=== PATIENT | female | born 1955 | race Two or more races ===

== ENCOUNTER 2021-03-28 10:08 | Inpatient (IN) | payer MEDICARE, OTHER ==
[~2021-03-28] VITALS: Ht 157.5 cm; Wt 88.0 kg
[2021-03-28 10:51] LABS: Basophils # (auto) 0.1 10 ^3/uL (0-0.2); Basophils % (auto) 0.3 % (0.0-2.0); Eosinophils # (auto) 0 10 ^3/uL (0-0.8); Eosinophils % (auto) 0.2 % (0.0-7.0); Hematocrit 42.5 % (36.0-46.0); Hemoglobin 11.8 g/dL (12.2-16.2); Lymphocytes % (auto) 15.6 % (10.0-50.0); Mean Corpuscular Hemoglobin 27.1 pg (28.0-32.0); Mean Corpuscular Hgb Conc. 27.9 g/dL (32.0-36.0); Monocytes # (auto) 1.7 10 ^3/uL (0-1.3); Monocytes % (auto) 9.2 % (0.0-12.0); Neutrophils # (auto) 14.1 10 ^3/uL (1.6-8.6); Neutrophils % (auto) 74.7 % (37.0-80.0); Nucleated Red Blood Cells % 0.1 %; Red Blood Cells 4.38 10^6/uL (4.0-5.20); Red Cell Distribution Width 15.8 % (11.8-14.3); White Blood Cell 18.9 10^3/uL (4.4-10.8)
[2021-03-28 11:05] LABS: Calcium 8.7 mg/dL (8.5-10.1); Magnesium 3.7 mg/dL (1.6-2.6)
[2021-03-28 11:14] LABS: BUN/Creatinine Ratio 19.2; Bilirubin, Total 0.5 mg/dL (0.2-1.0); Total Protein 7.1 g/dL (6.4-8.2)
[2021-03-28 11:20] LABS: Potassium 6.2 mmol/L (3.5-5.1)
[2021-03-28] MEDS ORDERED: DEXTROSE (50%) 50ML SYRG IV PRN (11:30)
[2021-03-28] MEDS ORDERED: INSULIN LANTUS (GLARGINE) 1 /0.01ml (100units/ml) SC ONE (11:30)
[2021-03-28] MEDS ORDERED: InsuLIN REG 1unit/0.01ml Soln (100units/ml) IV ONE (11:30)
[2021-03-28] MEDS ORDERED: InsuLIN R (HUMAN) 100 UNITS in SODIUM CHL 0.9% 99 ML IV SCH ×2 (11:30→19:15)
[2021-03-28] MEDS: ACCU-CHEK COMFORT CURVE STRIP VI SCH ×8 (12:00→23:45)
[2021-03-28] MEDS ORDERED: ETOMIDATE (2MG/ML) 20ML VIAL IV ONE ×2 (12:20→12:30)
[2021-03-28] MEDS ORDERED: SUCCINYLCHOLINE CHLORIDE 20 MG/ML 10ML VIAL IV ONE ×2 (12:20→12:30)
[2021-03-28] MEDS ORDERED: MIDAZOLAM DRIP 50 mg/50mL 50 ML IV ONE ×3 (12:21→19:16)
[2021-03-28] MEDS ORDERED: SODIUM BICARBONATE 8.4 % INJ 50ML VIAL IV ONE ×2 (12:30)
[2021-03-28] MEDS ORDERED: NOREPINEPHRINE 8 MG/250ML KIT 250 ML IV ONE (13:20)
[2021-03-28] MEDS: NOREPINEPHRINE 8 MG/250ML KIT 250 ML IV SCH (13:30)
[2021-03-28 14:02] LABS: Urine Bacteria FEW /hpf (None Seen); Urine Blood TRACE /uL (Negative); Urine Hyaline Cast FEW /lpf (0 - 2); Urine Specific Gravity 1.018 (1.001-1.035); Urine WBC 3 /hpf (0 - 5)
[2021-03-28] MEDS ORDERED: CEFEPIME 1 GM in SODIUM CHL 0.9% 50 ML IV ONE (14:30)
[2021-03-28] MEDS ORDERED: D5W/SOD CHLO 0.9% 1,000 ML IV PRN (14:30)
[2021-03-28] MEDS ORDERED: SODIUM CHLORIDE 0.9% 3,000 ML IV ONE (14:30)
[2021-03-28] MEDS ORDERED: MORPHINE SULFATE INJECTION 2 MG/ML SYRG IV PRN ×2 (14:30→16:15)
[2021-03-28] MEDS ORDERED: SOD CHL 0.9%/ KCL 20MEQ 1,000 ML IV PRN (14:30)
[2021-03-28] MEDS ORDERED: NITROGLYCERIN 0.4 MG SL TAB SL PRN ×2 (14:30→16:15)
[2021-03-28] MEDS ORDERED: LACTATED RINGER'S 2,000 ML IV ONE (14:30)
[2021-03-28] MEDS ORDERED: ENOXAPARIN SOD 40 MG/0.4 ML SYRINGE SC ONE (14:30)
[2021-03-28] MEDS ORDERED: SODIUM CHLORIDE 0.9% 1,000 ML IV ONE (15:30)
[2021-03-28] MEDS ORDERED: SODIUM BICARBONATE 50ML VIAL 50 ML in SOD CHL 0.45% 1,000 ML IV ONE (15:45)
[2021-03-28 16:00] VITALS: BP 105/28
[2021-03-28] MEDS ORDERED: PANTOPRAZOLE 40 MG/10 ML VIAL INJ IV ONE (16:15)
[2021-03-28] MEDS ORDERED: ACETAMINOPHEN 325 MG TAB PO PRN (16:15)
[2021-03-28] MEDS ORDERED: LORazepam 0.5 MG TAB PO PRN (16:15)
[2021-03-28] MEDS ORDERED: ALUM & MAG HYDROX-SIMETH LIQ(MAALOX) 30 ML PO PRN (16:15)
[2021-03-28] MEDS ORDERED: METOCLOPRAMIDE HCL 5MG/ml INJ 2ml VIAL IV PRN (16:15)
[2021-03-28] MEDS ORDERED: HYDROcodone-ACET 5/325MG TAB PO PRN (16:15)
[2021-03-28] MEDS ORDERED: BUMETANIDE 2.5mg/10ml (0.25 mg/ml) INJ IV ONE (16:15)
[2021-03-28 18:52] VITALS: BP 111/45
[2021-03-28] MEDS: MIDAZOLAM DRIP 50 mg/50mL 50 ML IV SCH (19:53)
[2021-03-28] MEDS: SODIUM CHLORIDE 0.9% 1,000 ML IV SCH (20:14)
[2021-03-28 22:02] VITALS: BP 109/35
[2021-03-28] MEDS: ATORVASTATIN 20 MG TAB PO SCH (22:26)
[2021-03-29] MEDS: ACCU-CHEK COMFORT CURVE STRIP VI SCH ×9 (01:46→18:40)
[2021-03-29] MEDS: SODIUM CHLORIDE 0.9% 1,000 ML IV SCH ×9 (01:56→18:54)
[2021-03-29 02:09] VITALS: BP 123/39
[2021-03-29] MEDS: MIDAZOLAM DRIP 50 mg/50mL 50 ML IV SCH ×3 (02:58→23:30)
[2021-03-29] MEDS: NOREPINEPHRINE 8 MG/250ML KIT 250 ML IV SCH (03:12)
[2021-03-29 03:14] LABS: LDL Cholesterol 82 mg/dL (< 100); Triglycerides 104 mg/dL (< 150)
[2021-03-29 03:55] LABS: Cholesterol 152 mg/dL (< 200)
[2021-03-29 03:58] LABS: HDL Cholesterol 47 mg/dL (40-59)
[2021-03-29] MEDS: BUMETANIDE 2.5mg/10ml (0.25 mg/ml) INJ IV SCH ×2 (06:19→18:40)
[2021-03-29] MEDS: HEPARIN SODIUM (PORCINE) 5000 UNITS/ML 1ML VIAL SC SCH ×3 (06:29→22:08)
[2021-03-29 06:30] VITALS: BP 117/47
[2021-03-29 08:18] LABS: Basophils # (auto) 0 10 ^3/uL (0-0.2); Basophils % (auto) 0.2 % (0.0-2.0); Eosinophils # (auto) 0 10 ^3/uL (0-0.8); Hematocrit 32.6 % (36.0-46.0); Hemoglobin 11.2 g/dL (12.2-16.2); Lymphocytes # (auto) 2.6 10 ^3/uL (0.4-5.4); Lymphocytes % (auto) 14.8 % (10.0-50.0); Mean Corpuscular Hemoglobin 27.8 pg (28.0-32.0); Mean Corpuscular Hgb Conc. 34.3 g/dL (32.0-36.0); Monocytes # (auto) 2.8 10 ^3/uL (0-1.3); Monocytes % (auto) 15.9 % (0.0-12.0); Neutrophils # (auto) 12.2 10 ^3/uL (1.6-8.6); Neutrophils % (auto) 69.1 % (37.0-80.0); Red Blood Cells 4.02 10^6/uL (4.0-5.20); Red Cell Distribution Width 14.1 % (11.8-14.3); White Blood Cell 17.7 10^3/uL (4.4-10.8)
[2021-03-29 08:49] LABS: Potassium 3.5 mmol/L (3.5-5.1)
[2021-03-29 09:01] LABS: Albumin 2.4 g/dL (3.4-5.0); BUN/Creatinine Ratio 24.8; Bilirubin, Total 0.3 mg/dL (0.2-1.0); Calcium 7.3 mg/dL (8.5-10.1); Magnesium 2.2 mg/dL (1.6-2.6); Phosphorus 2.8 mg/dL (2.5-4.90); Uric Acid 7.6 mg/dL (2.6-6.0)
[2021-03-29] MEDS ORDERED: ENOXAPARIN SOD 30 MG/0.3 ML SYRINGE SC SCH (10:00)
[2021-03-29] MEDS ORDERED: INSULIN LANTUS (GLARGINE) 1 /0.01ml (100units/ml) SC SCH (10:00)
[2021-03-29 10:15] VITALS: BP 140/36
[2021-03-29] MEDS: ASPirin 81 mg TAB PO SCH (11:07)
[2021-03-29] MEDS: PANTOPRAZOLE 40 MG/10 ML VIAL INJ IV SCH (11:07)
[2021-03-29] MEDS ORDERED: DEXTROSE (50%) 50ML SYRG IV PRN (12:15)
[2021-03-29] MEDS ORDERED: INSULIN LANTUS (GLARGINE) 1 /0.01ml (100units/ml) SC ONE (12:15)
[2021-03-29] MEDS ORDERED: D5W/SOD CHL 0.45%/KCL 20MEQ 1,000 ML IV SCH (12:45)
[2021-03-29 14:05] VITALS: BP 135/55
[2021-03-29] MEDS ORDERED: CEFEPIME 1 GM in SODIUM CHL 0.9% 50 ML IV SCH (15:00)
[2021-03-29 18:31] VITALS: BP 125/49
[2021-03-29] MEDS: InsuLIN REG 1unit/0.01ml Soln (100units/ml) SC SCH (18:49)
[2021-03-29 21:38] VITALS: BP 130/51
[2021-03-29] MEDS: INSULIN LANTUS (GLARGINE) 1 /0.01ml (100units/ml) SC SCH (22:00)
[2021-03-29] MEDS: CEFEPIME 1 GM in SODIUM CHL 0.9% 50 ML IV SCH (22:08)
[2021-03-29] MEDS: ATORVASTATIN 20 MG TAB PO SCH (22:08)
[2021-03-30] VITALS (11 sets, daily range): BP systolic 109–150; BP diastolic 50–77
[2021-03-30] MEDS: SODIUM CHLORIDE 0.9% 1,000 ML IV SCH (00:51)
[2021-03-30] MEDS: InsuLIN REG 1unit/0.01ml Soln (100units/ml) SC SCH ×4 (01:10→18:26)
[2021-03-30] MEDS: ACCU-CHEK COMFORT CURVE STRIP VI SCH ×4 (01:11→18:15)
[2021-03-30 07:52] LABS: Basophils # (auto) 0.1 10 ^3/uL (0-0.2); Basophils % (auto) 0.7 % (0.0-2.0); Eosinophils # (auto) 0 10 ^3/uL (0-0.8); Eosinophils % (auto) 0.1 % (0.0-7.0); Hematocrit 33.2 % (36.0-46.0); Hemoglobin 11.2 g/dL (12.2-16.2); Lymphocytes # (auto) 2.4 10 ^3/uL (0.4-5.4); Mean Corpuscular Hemoglobin 27.8 pg (28.0-32.0); Mean Corpuscular Hgb Conc. 33.8 g/dL (32.0-36.0); Mean Corpuscular Volume 82.2 fL (80.0-100.0); Neutrophils # (auto) 6.5 10 ^3/uL (1.6-8.6); Neutrophils % (auto) 65.2 % (37.0-80.0); Red Blood Cells 4.04 10^6/uL (4.0-5.20); Red Cell Distribution Width 14.4 % (11.8-14.3); White Blood Cell 9.9 10^3/uL (4.4-10.8)
[2021-03-30 07:56] LABS: Albumin 2.2 g/dL (3.4-5.0); Calcium 7.9 mg/dL (8.5-10.1); Potassium 3.1 mmol/L (3.5-5.1)
[2021-03-30 07:58] LABS: BUN/Creatinine Ratio 17.8
[2021-03-30 08:00] LABS: Bilirubin, Total 0.4 mg/dL (0.2-1.0); Total Protein 5.4 g/dL (6.4-8.2)
[2021-03-30] MEDS: PANTOPRAZOLE 40 MG/10 ML VIAL INJ IV SCH (08:58)
[2021-03-30] MEDS: CEFEPIME 1 GM in SODIUM CHL 0.9% 50 ML IV SCH ×2 (08:58→23:00)
[2021-03-30] MEDS: ASPirin 81 mg TAB PO SCH (08:58)
[2021-03-30] MEDS: BUMETANIDE 2.5mg/10ml (0.25 mg/ml) INJ IV SCH ×2 (09:04→18:25)
[2021-03-30] MEDS: HEPARIN SODIUM (PORCINE) 5000 UNITS/ML 1ML VIAL SC SCH ×3 (09:05→21:58)
[2021-03-30] MEDS: NOREPINEPHRINE 8 MG/250ML KIT 250 ML IV SCH (13:30)
[2021-03-30] MEDS: POTASSIUM CHL 10MEQ/50ML 50 ML IV SCH ×4 (13:40→16:56)
[2021-03-30] MEDS: MIDAZOLAM DRIP 50 mg/50mL 50 ML IV SCH (20:33)
[2021-03-30] MEDS: ATORVASTATIN 20 MG TAB PO SCH (21:58)
[2021-03-30] MEDS: INSULIN LANTUS (GLARGINE) 1 /0.01ml (100units/ml) SC SCH (22:00)
[2021-03-31] VITALS (57 sets, daily range): BP systolic 98–170; BP diastolic 45–76
[2021-03-31] MEDS: ACCU-CHEK COMFORT CURVE STRIP VI SCH ×4 (00:03→18:10)
[2021-03-31] MEDS: InsuLIN REG 1unit/0.01ml Soln (100units/ml) SC SCH ×4 (00:08→18:10)
[2021-03-31 05:00] LABS: Basophils # (auto) 0.1 10 ^3/uL (0-0.2); Basophils % (auto) 0.6 % (0.0-2.0); Eosinophils # (auto) 0 10 ^3/uL (0-0.8); Eosinophils % (auto) 0.2 % (0.0-7.0); Hematocrit 33.5 % (36.0-46.0); Hemoglobin 11.2 g/dL (12.2-16.2); Lymphocytes % (auto) 25.2 % (10.0-50.0); Mean Corpuscular Hemoglobin 27.6 pg (28.0-32.0); Mean Corpuscular Hgb Conc. 33.5 g/dL (32.0-36.0); Mean Corpuscular Volume 82.5 fL (80.0-100.0); Monocytes # (auto) 0.6 10 ^3/uL (0-1.3); Monocytes % (auto) 7.6 % (0.0-12.0); Neutrophils # (auto) 5.4 10 ^3/uL (1.6-8.6); Neutrophils % (auto) 66.4 % (37.0-80.0); Nucleated Red Blood Cells % 0.2 %; Red Blood Cells 4.06 10^6/uL (4.0-5.20); Red Cell Distribution Width 14.9 % (11.8-14.3); White Blood Cell 8.1 10^3/uL (4.4-10.8)
[2021-03-31 05:21] LABS: Calcium 8.2 mg/dL (8.5-10.1)
[2021-03-31 05:23] LABS: BUN/Creatinine Ratio 12.5
[2021-03-31 05:30] LABS: Bilirubin, Total 0.4 mg/dL (0.2-1.0); Total Protein 5.8 g/dL (6.4-8.2)
[2021-03-31] MEDS: BUMETANIDE 2.5mg/10ml (0.25 mg/ml) INJ IV SCH ×2 (05:38→18:11)
[2021-03-31] MEDS: HEPARIN SODIUM (PORCINE) 5000 UNITS/ML 1ML VIAL SC SCH ×3 (05:43→22:00)
[2021-03-31] MEDS: MIDAZOLAM DRIP 50 mg/50mL 50 ML IV SCH (06:46)
[2021-03-31] MEDS ORDERED: POTASSIUM CHL 10MEQ/50ML 50 ML IV SCH (07:00)
[2021-03-31] MEDS: SODIUM CHLORIDE 0.9% 1,000 ML IV SCH ×2 (08:19→15:45)
[2021-03-31] MEDS: PANTOPRAZOLE 40 MG/10 ML VIAL INJ IV SCH (09:48)
[2021-03-31] MEDS: ASPirin 81 mg TAB PO SCH (09:48)
[2021-03-31] MEDS: CEFEPIME 1 GM in SODIUM CHL 0.9% 50 ML IV SCH ×2 (11:00→21:38)
[2021-03-31] MEDS: NOREPINEPHRINE 8 MG/250ML KIT 250 ML IV SCH (13:30)
[2021-03-31] MEDS: POTASSIUM CHL 10MEQ/50ML 50 ML IV SCH ×4 (16:19→21:38)
[2021-03-31] MEDS: ATORVASTATIN 20 MG TAB PO SCH (22:00)
[2021-03-31] MEDS: INSULIN LANTUS (GLARGINE) 1 /0.01ml (100units/ml) SC SCH (22:00)
[2021-04-01] VITALS (53 sets, daily range): BP systolic 84–157; BP diastolic 37–80
[2021-04-01] MEDS: SODIUM CHLORIDE 0.9% 1,000 ML IV SCH ×3 (01:45→21:58)
[2021-04-01 03:44] LABS: Basophils # (auto) 0.1 10 ^3/uL (0-0.2); Eosinophils # (auto) 0.1 10 ^3/uL (0-0.8); Eosinophils % (auto) 1.2 % (0.0-7.0); Hematocrit 34.8 % (36.0-46.0); Hemoglobin 11.5 g/dL (12.2-16.2); Lymphocytes # (auto) 1.7 10 ^3/uL (0.4-5.4); Lymphocytes % (auto) 21.5 % (10.0-50.0); Mean Corpuscular Hemoglobin 27.4 pg (28.0-32.0); Monocytes # (auto) 0.6 10 ^3/uL (0-1.3); Monocytes % (auto) 7.9 % (0.0-12.0); Neutrophils # (auto) 5.3 10 ^3/uL (1.6-8.6); Neutrophils % (auto) 68.4 % (37.0-80.0); Nucleated Red Blood Cells % 0.1 %; Red Blood Cells 4.19 10^6/uL (4.0-5.20); Red Cell Distribution Width 14.6 % (11.8-14.3); White Blood Cell 7.7 10^3/uL (4.4-10.8)
[2021-04-01 03:59] LABS: Albumin 1.9 g/dL (3.4-5.0); Calcium 8.1 mg/dL (8.5-10.1); Potassium 3.5 mmol/L (3.5-5.1)
[2021-04-01 04:02] LABS: BUN/Creatinine Ratio 21.8
[2021-04-01 04:05] LABS: Bilirubin, Total 0.8 mg/dL (0.2-1.0)
[2021-04-01] MEDS: BUMETANIDE 2.5mg/10ml (0.25 mg/ml) INJ IV SCH ×2 (05:29→18:03)
[2021-04-01] MEDS: ACCU-CHEK COMFORT CURVE STRIP VI SCH ×4 (05:30→18:12)
[2021-04-01] MEDS: HEPARIN SODIUM (PORCINE) 5000 UNITS/ML 1ML VIAL SC SCH ×3 (06:00→21:58)
[2021-04-01] MEDS: InsuLIN REG 1unit/0.01ml Soln (100units/ml) SC SCH ×4 (06:32→18:12)
[2021-04-01] MEDS: PANTOPRAZOLE 40 MG/10 ML VIAL INJ IV SCH (09:40)
[2021-04-01] MEDS: ASPirin 81 mg TAB PO SCH (09:47)
[2021-04-01] MEDS: CEFEPIME 1 GM in SODIUM CHL 0.9% 50 ML IV SCH ×2 (09:58→21:04)
[2021-04-01] MEDS: NOREPINEPHRINE 8 MG/250ML KIT 250 ML IV SCH (13:30)
[2021-04-01] MEDS: MIDAZOLAM DRIP 50 mg/50mL 50 ML IV SCH (19:45)
[2021-04-01] MEDS: ATORVASTATIN 20 MG TAB PO SCH (21:58)
[2021-04-01] MEDS: INSULIN LANTUS (GLARGINE) 1 /0.01ml (100units/ml) SC SCH (22:14)
[2021-04-02] VITALS (49 sets, daily range): BP systolic 81–154; BP diastolic 36–78
[2021-04-02] MEDS: ACCU-CHEK COMFORT CURVE STRIP VI SCH ×4 (05:39→18:19)
[2021-04-02] MEDS: InsuLIN REG 1unit/0.01ml Soln (100units/ml) SC SCH ×4 (05:49→18:00)
[2021-04-02] MEDS: HEPARIN SODIUM (PORCINE) 5000 UNITS/ML 1ML VIAL SC SCH ×3 (05:49→21:05)
[2021-04-02] MEDS: CEFEPIME 1 GM in SODIUM CHL 0.9% 50 ML IV SCH ×3 (05:52→21:04)
[2021-04-02] MEDS: BUMETANIDE 2.5mg/10ml (0.25 mg/ml) INJ IV SCH ×2 (05:53→18:18)
[2021-04-02 06:11] LABS: Basophils # (auto) 0.1 10 ^3/uL (0-0.2); Basophils % (auto) 0.7 % (0.0-2.0); Eosinophils # (auto) 0.1 10 ^3/uL (0-0.8); Eosinophils % (auto) 0.8 % (0.0-7.0); Hematocrit 34.2 % (36.0-46.0); Hemoglobin 11.5 g/dL (12.2-16.2); Lymphocytes # (auto) 1.7 10 ^3/uL (0.4-5.4); Lymphocytes % (auto) 19.5 % (10.0-50.0); Mean Corpuscular Hgb Conc. 33.7 g/dL (32.0-36.0); Monocytes # (auto) 0.7 10 ^3/uL (0-1.3); Monocytes % (auto) 8.5 % (0.0-12.0); Neutrophils # (auto) 6.1 10 ^3/uL (1.6-8.6); Neutrophils % (auto) 70.5 % (37.0-80.0); Nucleated Red Blood Cells % 0.1 %; Red Blood Cells 4.12 10^6/uL (4.0-5.20); Red Cell Distribution Width 14.9 % (11.8-14.3); White Blood Cell 8.6 10^3/uL (4.4-10.8)
[2021-04-02 06:13] LABS: Albumin 1.8 g/dL (3.4-5.0); Potassium 3.1 mmol/L (3.5-5.1)
[2021-04-02 06:16] LABS: Bilirubin, Total 0.5 mg/dL (0.2-1.0); Total Protein 6.2 g/dL (6.4-8.2)
[2021-04-02] MEDS: SODIUM CHLORIDE 0.9% 1,000 ML IV SCH ×2 (07:45→17:45)
[2021-04-02] MEDS: ASPirin 81 mg TAB PO SCH (10:22)
[2021-04-02] MEDS: PANTOPRAZOLE 40 MG/10 ML VIAL INJ IV SCH (10:22)
[2021-04-02] MEDS: NOREPINEPHRINE 8 MG/250ML KIT 250 ML IV SCH (13:28)
[2021-04-02] MEDS: MIDAZOLAM DRIP 50 mg/50mL 50 ML IV SCH (19:45)
[2021-04-02] MEDS: ATORVASTATIN 20 MG TAB PO SCH (21:16)
[2021-04-02] MEDS: INSULIN LANTUS (GLARGINE) 1 /0.01ml (100units/ml) SC SCH (21:16)
[2021-04-02] MEDS: MORPHINE SULFATE INJECTION 2 MG/ML SYRG IV PRN (22:45)
[2021-04-03] VITALS (21 sets, daily range): BP systolic 117–171; BP diastolic 32–107
[2021-04-03] MEDS: ACCU-CHEK COMFORT CURVE STRIP VI SCH ×4 (00:10→17:47)
[2021-04-03] MEDS: InsuLIN REG 1unit/0.01ml Soln (100units/ml) SC SCH ×4 (00:15→17:31)
[2021-04-03] MEDS: SODIUM CHLORIDE 0.9% 1,000 ML IV SCH ×2 (03:46→13:54)
[2021-04-03 04:52] LABS: Basophils # (auto) 0.1 10 ^3/uL (0-0.2); Eosinophils # (auto) 0.1 10 ^3/uL (0-0.8); Eosinophils % (auto) 1.2 % (0.0-7.0); Hematocrit 36.4 % (36.0-46.0); Lymphocytes # (auto) 1.7 10 ^3/uL (0.4-5.4); Lymphocytes % (auto) 15.1 % (10.0-50.0); Mean Corpuscular Hemoglobin 27.5 pg (28.0-32.0); Mean Corpuscular Hgb Conc. 32.9 g/dL (32.0-36.0); Mean Corpuscular Volume 83.3 fL (80.0-100.0); Monocytes # (auto) 1.4 10 ^3/uL (0-1.3); Monocytes % (auto) 12.1 % (0.0-12.0); Neutrophils # (auto) 8.1 10 ^3/uL (1.6-8.6); Neutrophils % (auto) 70.6 % (37.0-80.0); Red Blood Cells 4.37 10^6/uL (4.0-5.20); Red Cell Distribution Width 14.6 % (11.8-14.3); White Blood Cell 11.5 10^3/uL (4.4-10.8)
[2021-04-03 05:09] LABS: Albumin 2.1 g/dL (3.4-5.0)
[2021-04-03 05:13] LABS: Bilirubin, Total 0.5 mg/dL (0.2-1.0); Total Protein 6.7 g/dL (6.4-8.2)
[2021-04-03 05:19] LABS: Potassium 2.7 mmol/L (3.5-5.1)
[2021-04-03] MEDS: BUMETANIDE 2.5mg/10ml (0.25 mg/ml) INJ IV SCH ×2 (05:39→17:36)
[2021-04-03] MEDS: CEFEPIME 1 GM in SODIUM CHL 0.9% 50 ML IV SCH ×3 (05:39→22:33)
[2021-04-03] MEDS: HEPARIN SODIUM (PORCINE) 5000 UNITS/ML 1ML VIAL SC SCH ×3 (05:41→22:21)
[2021-04-03 06:08] LABS: BUN/Creatinine Ratio 20.2
[2021-04-03] MEDS ORDERED: POTASSIUM CHLORIDE 40 MEQ in D5W 5% 1,000 ML IV SCH (08:30)
[2021-04-03] MEDS: POTASSIUM CHL 10MEQ/50ML 50 ML IV SCH ×7 (08:54→18:23)
[2021-04-03] MEDS: ASPirin 81 mg TAB PO SCH (09:49)
[2021-04-03] MEDS: PANTOPRAZOLE 40 MG/10 ML VIAL INJ IV SCH (09:51)
[2021-04-03] MEDS: MORPHINE SULFATE INJECTION 2 MG/ML SYRG IV PRN (11:35)
[2021-04-03] MEDS ORDERED: hydrALAZINE HCL 20 MG/ML VL IV PRN (12:30)
[2021-04-03] MEDS ORDERED: hydrALAZINE HCL 20 MG/ML VL ONE (12:35)
[2021-04-03] MEDS: NOREPINEPHRINE 8 MG/250ML KIT 250 ML IV SCH (13:30)
[2021-04-03] MEDS: INSULIN LANTUS (GLARGINE) 1 /0.01ml (100units/ml) SC SCH (16:30)
[2021-04-03] MEDS: ATORVASTATIN 20 MG TAB PO SCH (22:00)
[2021-04-04] MEDS: ACCU-CHEK COMFORT CURVE STRIP VI SCH ×5 (00:09→23:15)
[2021-04-04] MEDS: InsuLIN REG 1unit/0.01ml Soln (100units/ml) SC SCH ×5 (00:10→23:12)
[2021-04-04 04:30] VITALS: BP 161/74
[2021-04-04 05:42] LABS: Basophils # (auto) 0 10 ^3/uL (0-0.2); Basophils % (auto) 0.4 % (0.0-2.0); Eosinophils # (auto) 0.1 10 ^3/uL (0-0.8); Monocytes # (auto) 1.5 10 ^3/uL (0-1.3); Neutrophils # (auto) 8.2 10 ^3/uL (1.6-8.6); Red Cell Distribution Width 14.8 % (11.8-14.3)
[2021-04-04 05:46] LABS: Eosinophils % (auto) 0.8 % (0.0-7.0); Hematocrit 41.1 % (36.0-46.0); Hemoglobin 13.4 g/dL (12.2-16.2); Lymphocytes # (auto) 1.6 10 ^3/uL (0.4-5.4); Mean Corpuscular Hemoglobin 27.2 pg (28.0-32.0); Mean Corpuscular Hgb Conc. 32.7 g/dL (32.0-36.0); Mean Corpuscular Volume 83.1 fL (80.0-100.0); Monocytes % (auto) 13.4 % (0.0-12.0); Neutrophils % (auto) 71.4 % (37.0-80.0); Nucleated Red Blood Cells % 0.2 %; Red Blood Cells 4.94 10^6/uL (4.0-5.20); White Blood Cell 11.4 10^3/uL (4.4-10.8)
[2021-04-04 05:49] LABS: Albumin 2.4 g/dL (3.4-5.0); Calcium 8.7 mg/dL (8.5-10.1); Potassium 3.2 mmol/L (3.5-5.1)
[2021-04-04 05:52] LABS: BUN/Creatinine Ratio 25.7
[2021-04-04 06:03] LABS: Bilirubin, Total 0.7 mg/dL (0.2-1.0); Total Protein 7.6 g/dL (6.4-8.2)
[2021-04-04] MEDS: HEPARIN SODIUM (PORCINE) 5000 UNITS/ML 1ML VIAL SC SCH ×2 (06:26→13:10)
[2021-04-04] MEDS: CEFEPIME 1 GM in SODIUM CHL 0.9% 50 ML IV SCH ×3 (06:27→22:44)
[2021-04-04] MEDS: BUMETANIDE 2.5mg/10ml (0.25 mg/ml) INJ IV SCH ×2 (06:27→17:21)
[2021-04-04 09:00] VITALS: BP 162/71
[2021-04-04] MEDS: PANTOPRAZOLE 40 MG/10 ML VIAL INJ IV SCH (09:13)
[2021-04-04] MEDS: ASPirin 81 mg TAB PO SCH (09:13)
[2021-04-04 13:00] VITALS: BP 141/73
[2021-04-04 17:00] VITALS: BP 140/75
[2021-04-04 22:00] VITALS: BP 150/73
[2021-04-04] MEDS: APIXABAN 5 MG TAB PO SCH (22:44)
[2021-04-04] MEDS: AMIODARONE HCL 200 MG TAB PO SCH (22:44)
[2021-04-04] MEDS: ATORVASTATIN 20 MG TAB PO SCH (22:44)
[2021-04-04] MEDS: INSULIN LANTUS (GLARGINE) 1 /0.01ml (100units/ml) SC SCH (23:12)
[2021-04-05 05:00] VITALS: BP 133/55
[2021-04-05 05:22] LABS: Basophils # (auto) 0 10 ^3/uL (0-0.2); Basophils % (auto) 0.4 % (0.0-2.0); Eosinophils # (auto) 0.1 10 ^3/uL (0-0.8); Eosinophils % (auto) 0.7 % (0.0-7.0); Hematocrit 42.3 % (36.0-46.0); Hemoglobin 13.7 g/dL (12.2-16.2); Lymphocytes # (auto) 1.8 10 ^3/uL (0.4-5.4); Lymphocytes % (auto) 15.1 % (10.0-50.0); Mean Corpuscular Hgb Conc. 32.4 g/dL (32.0-36.0); Mean Corpuscular Volume 83.5 fL (80.0-100.0); Monocytes # (auto) 1.8 10 ^3/uL (0-1.3); Monocytes % (auto) 14.7 % (0.0-12.0); Neutrophils # (auto) 8.4 10 ^3/uL (1.6-8.6); Neutrophils % (auto) 69.1 % (37.0-80.0); Nucleated Red Blood Cells % 0.1 %; Red Blood Cells 5.06 10^6/uL (4.0-5.20); White Blood Cell 12.2 10^3/uL (4.4-10.8)
[2021-04-05] MEDS: ACCU-CHEK COMFORT CURVE STRIP VI SCH ×4 (05:25→23:12)
[2021-04-05] MEDS: CEFEPIME 1 GM in SODIUM CHL 0.9% 50 ML IV SCH ×3 (05:26→23:21)
[2021-04-05] MEDS: BUMETANIDE 2.5mg/10ml (0.25 mg/ml) INJ IV SCH ×2 (05:32→17:42)
[2021-04-05 05:43] LABS: Potassium 3.1 mmol/L (3.5-5.1)
[2021-04-05] MEDS: InsuLIN REG 1unit/0.01ml Soln (100units/ml) SC SCH ×4 (05:43→23:12)
[2021-04-05 05:58] LABS: Albumin 2.4 g/dL (3.4-5.0); BUN/Creatinine Ratio 26.9; Bilirubin, Total 0.6 mg/dL (0.2-1.0); Total Protein 7.5 g/dL (6.4-8.2)
[2021-04-05 09:00] VITALS: BP 110/56
[2021-04-05] MEDS: APIXABAN 5 MG TAB PO SCH ×2 (09:50→23:21)
[2021-04-05] MEDS: AMIODARONE HCL 200 MG TAB PO SCH ×2 (09:50→23:21)
[2021-04-05] MEDS: PANTOPRAZOLE 40 MG/10 ML VIAL INJ IV SCH (09:50)
[2021-04-05] MEDS: ASPirin 81 mg TAB PO SCH (09:50)
[2021-04-05] MEDS: METOPROLOL SUCCINATE XL 50 MG TAB PO SCH (09:51)
[2021-04-05] MEDS ORDERED: POTASSIUM CHL 20 Meq TABLET PO ONE (10:00)
[2021-04-05 13:28] VITALS: BP 121/74
[2021-04-05 17:00] VITALS: BP 106/54
[2021-04-05 20:00] VITALS: BP 118/56
[2021-04-05] MEDS: INSULIN LANTUS (GLARGINE) 1 /0.01ml (100units/ml) SC SCH (23:17)
[2021-04-05] MEDS: ATORVASTATIN 20 MG TAB PO SCH (23:21)
[2021-04-06] VITALS (7 sets, daily range): BP systolic 108–118; BP diastolic 47–68
[2021-04-06] MEDS: ACCU-CHEK COMFORT CURVE STRIP VI SCH ×3 (05:45→17:16)
[2021-04-06] MEDS: CEFEPIME 1 GM in SODIUM CHL 0.9% 50 ML IV SCH ×3 (05:45→22:00)
[2021-04-06] MEDS: BUMETANIDE 2.5mg/10ml (0.25 mg/ml) INJ IV SCH ×2 (06:14→17:33)
[2021-04-06 06:18] LABS: Basophils # (auto) 0.1 10 ^3/uL (0-0.2); Basophils % (auto) 0.5 % (0.0-2.0); Eosinophils # (auto) 0.4 10 ^3/uL (0-0.8); Eosinophils % (auto) 3.5 % (0.0-7.0); Hematocrit 39.9 % (36.0-46.0); Hemoglobin 12.9 g/dL (12.2-16.2); Lymphocytes # (auto) 2.7 10 ^3/uL (0.4-5.4); Lymphocytes % (auto) 21.5 % (10.0-50.0); Mean Corpuscular Hemoglobin 26.9 pg (28.0-32.0); Mean Corpuscular Hgb Conc. 32.3 g/dL (32.0-36.0); Mean Corpuscular Volume 83.3 fL (80.0-100.0); Monocytes # (auto) 1.5 10 ^3/uL (0-1.3); Monocytes % (auto) 11.7 % (0.0-12.0); Neutrophils # (auto) 7.9 10 ^3/uL (1.6-8.6); Neutrophils % (auto) 62.8 % (37.0-80.0); Nucleated Red Blood Cells % 0.1 %; Red Blood Cells 4.79 10^6/uL (4.0-5.20); Red Cell Distribution Width 14.4 % (11.8-14.3); White Blood Cell 12.6 10^3/uL (4.4-10.8)
[2021-04-06 06:25] LABS: Potassium 3.5 mmol/L (3.5-5.1)
[2021-04-06 06:43] LABS: Albumin 2.2 g/dL (3.4-5.0); BUN/Creatinine Ratio 31.2; Bilirubin, Total 1.1 mg/dL (0.2-1.0); Calcium 8.2 mg/dL (8.5-10.1); Total Protein 6.5 g/dL (6.4-8.2)
[2021-04-06] MEDS: InsuLIN REG 1unit/0.01ml Soln (100units/ml) SC SCH ×3 (07:07→17:33)
[2021-04-06] MEDS: ASPirin 81 mg TAB PO SCH (10:00)
[2021-04-06] MEDS: APIXABAN 5 MG TAB PO SCH ×2 (10:00→21:55)
[2021-04-06] MEDS: METOPROLOL SUCCINATE XL 50 MG TAB PO SCH (10:00)
[2021-04-06] MEDS: PANTOPRAZOLE 40 MG/10 ML VIAL INJ IV SCH (10:00)
[2021-04-06] MEDS: AMIODARONE HCL 200 MG TAB PO SCH ×3 (10:00→22:45)
[2021-04-06] MEDS ORDERED: POTASSIUM CHL 20 Meq TABLET PO ONE (11:15)
[2021-04-06] MEDS: ATORVASTATIN 20 MG TAB PO SCH (21:55)
[2021-04-06] MEDS: INSULIN LANTUS (GLARGINE) 1 /0.01ml (100units/ml) SC SCH (22:00)
[2021-04-07] MEDS: ACCU-CHEK COMFORT CURVE STRIP VI SCH ×4 (03:27→17:21)
[2021-04-07] MEDS: InsuLIN REG 1unit/0.01ml Soln (100units/ml) SC SCH ×4 (03:29→17:21)
[2021-04-07 05:00] VITALS: BP 117/47
[2021-04-07 05:22] LABS: Basophils # (auto) 0.1 10 ^3/uL (0-0.2); Basophils % (auto) 0.6 % (0.0-2.0); Eosinophils # (auto) 0.5 10 ^3/uL (0-0.8); Hematocrit 37.4 % (36.0-46.0); Hemoglobin 12.2 g/dL (12.2-16.2); Lymphocytes # (auto) 2.4 10 ^3/uL (0.4-5.4); Lymphocytes % (auto) 18.1 % (10.0-50.0); Mean Corpuscular Hemoglobin 27.1 pg (28.0-32.0); Mean Corpuscular Hgb Conc. 32.8 g/dL (32.0-36.0); Mean Corpuscular Volume 82.9 fL (80.0-100.0); Monocytes # (auto) 1.1 10 ^3/uL (0-1.3); Monocytes % (auto) 8.3 % (0.0-12.0); Neutrophils # (auto) 9.2 10 ^3/uL (1.6-8.6); Nucleated Red Blood Cells % 0.1 %; Red Blood Cells 4.51 10^6/uL (4.0-5.20); Red Cell Distribution Width 14.3 % (11.8-14.3); White Blood Cell 13.3 10^3/uL (4.4-10.8)
[2021-04-07 05:58] LABS: Potassium 3.4 mmol/L (3.5-5.1)
[2021-04-07 06:00] LABS: BUN/Creatinine Ratio 24.1
[2021-04-07 06:03] LABS: Bilirubin, Total 0.7 mg/dL (0.2-1.0)
[2021-04-07] MEDS: CEFEPIME 1 GM in SODIUM CHL 0.9% 50 ML IV SCH ×3 (06:24→22:18)
[2021-04-07] MEDS: BUMETANIDE 2.5mg/10ml (0.25 mg/ml) INJ IV SCH ×2 (06:25→17:20)
[2021-04-07 08:00] VITALS: BP 115/57
[2021-04-07] MEDS: METOPROLOL SUCCINATE XL 50 MG TAB PO SCH (10:00)
[2021-04-07] MEDS: ASPirin 81 mg TAB PO SCH (10:00)
[2021-04-07] MEDS: AMIODARONE HCL 200 MG TAB PO SCH (10:00)
[2021-04-07] MEDS: PANTOPRAZOLE 40 MG/10 ML VIAL INJ IV SCH (10:00)
[2021-04-07] MEDS: APIXABAN 5 MG TAB PO SCH ×2 (10:00→22:18)
[2021-04-07 12:30] VITALS: BP 125/47
[2021-04-07 22:00] VITALS: BP 141/53
[2021-04-07] MEDS: ATORVASTATIN 20 MG TAB PO SCH (22:18)
[2021-04-07] MEDS: INSULIN LANTUS (GLARGINE) 1 /0.01ml (100units/ml) SC SCH (22:37)
[2021-04-08] MEDS: ACCU-CHEK COMFORT CURVE STRIP VI SCH ×4 (00:26→18:00)
[2021-04-08] MEDS: InsuLIN REG 1unit/0.01ml Soln (100units/ml) SC SCH ×3 (00:26→12:18)
[2021-04-08] MEDS: BUMETANIDE 2.5mg/10ml (0.25 mg/ml) INJ IV SCH (05:32)
[2021-04-08] MEDS: CEFEPIME 1 GM in SODIUM CHL 0.9% 50 ML IV SCH ×3 (05:33→22:00)
[2021-04-08 06:00] VITALS: BP 110/49
[2021-04-08 06:43] LABS: Basophils # (auto) 0.1 10 ^3/uL (0-0.2); Basophils % (auto) 0.7 % (0.0-2.0); Eosinophils # (auto) 0.7 10 ^3/uL (0-0.8); Eosinophils % (auto) 4.8 % (0.0-7.0); Hematocrit 42.5 % (36.0-46.0); Hemoglobin 14.1 g/dL (12.2-16.2); Lymphocytes # (auto) 2.9 10 ^3/uL (0.4-5.4); Lymphocytes % (auto) 20.8 % (10.0-50.0); Mean Corpuscular Hemoglobin 27.5 pg (28.0-32.0); Mean Corpuscular Hgb Conc. 33.1 g/dL (32.0-36.0); Mean Corpuscular Volume 83.1 fL (80.0-100.0); Monocytes # (auto) 1.4 10 ^3/uL (0-1.3); Monocytes % (auto) 10.5 % (0.0-12.0); Neutrophils # (auto) 8.7 10 ^3/uL (1.6-8.6); Neutrophils % (auto) 63.2 % (37.0-80.0); Nucleated Red Blood Cells % 0.2 %; Red Blood Cells 5.12 10^6/uL (4.0-5.20); Red Cell Distribution Width 14.5 % (11.8-14.3); White Blood Cell 13.7 10^3/uL (4.4-10.8)
[2021-04-08 07:02] LABS: Albumin 2.3 g/dL (3.4-5.0); Calcium 8.1 mg/dL (8.5-10.1); Potassium 3.4 mmol/L (3.5-5.1)
[2021-04-08 07:07] LABS: BUN/Creatinine Ratio 19.8; Bilirubin, Total 0.7 mg/dL (0.2-1.0); Total Protein 6.7 g/dL (6.4-8.2)
[2021-04-08 09:00] VITALS: BP 117/71
[2021-04-08] MEDS: PANTOPRAZOLE 40 MG/10 ML VIAL INJ IV SCH (11:10)
[2021-04-08] MEDS: ASPirin 81 mg TAB PO SCH (11:10)
[2021-04-08] MEDS: AMIODARONE HCL 200 MG TAB PO SCH (11:11)
[2021-04-08] MEDS: APIXABAN 5 MG TAB PO SCH ×2 (11:11→21:57)
[2021-04-08] MEDS: METOPROLOL SUCCINATE XL 50 MG TAB PO SCH (11:12)
[2021-04-08 13:00] VITALS: BP 123/56
[2021-04-08 14:25] VITALS: BP 123/56
[2021-04-08 17:00] VITALS: BP 105/60
[2021-04-08] MEDS ORDERED: ASPI1CHW15 PO (17:31)
[2021-04-08] MEDS ORDERED: INSLANTI SC (17:31)
[2021-04-08] MEDS ORDERED: ATOR20TA50 PO (17:31)
[2021-04-08] MEDS ORDERED: APIX5TAB PO (17:31)
[2021-04-08] MEDS ORDERED: INSREGI SC (17:31)
[2021-04-08] MEDS ORDERED: METO-6 PO (17:31)
[2021-04-08] MEDS: Glucerna Carbsteady SHAKE Vanilla 8oz PO SCH (18:00)
[2021-04-08 22:00] VITALS: BP 120/72
[2021-04-08] MEDS: ATORVASTATIN 20 MG TAB PO SCH (22:04)
[2021-04-08] MEDS: INSULIN LANTUS (GLARGINE) 1 /0.01ml (100units/ml) SC SCH (22:05)
[2021-04-09] MEDS: ACCU-CHEK COMFORT CURVE STRIP VI SCH ×4 (00:43→18:00)
[2021-04-09] MEDS: InsuLIN REG 1unit/0.01ml Soln (100units/ml) SC SCH ×4 (00:47→18:28)
[2021-04-09 05:44] VITALS: BP 131/34
[2021-04-09] MEDS: BUMETANIDE 2.5mg/10ml (0.25 mg/ml) INJ IV SCH ×2 (06:22→18:21)
[2021-04-09] MEDS: CEFEPIME 1 GM in SODIUM CHL 0.9% 50 ML IV SCH ×2 (06:22→15:00)
[2021-04-09] MEDS: Glucerna Carbsteady SHAKE Vanilla 8oz PO SCH ×3 (08:00→18:00)
[2021-04-09 09:00] VITALS: BP 111/60
[2021-04-09] MEDS: PANTOPRAZOLE 40 MG/10 ML VIAL INJ IV SCH (09:56)
[2021-04-09] MEDS: AMIODARONE HCL 200 MG TAB PO SCH (09:57)
[2021-04-09] MEDS: ASPirin 81 mg TAB PO SCH (09:57)
[2021-04-09] MEDS: METOPROLOL SUCCINATE XL 50 MG TAB PO SCH (09:58)
[2021-04-09] MEDS: APIXABAN 5 MG TAB PO SCH ×2 (11:13→23:14)
[2021-04-09] MEDS: DOCUSATE SOD 100 MG CAP PO PRN ×2 (11:14→22:47)
[2021-04-09 13:00] VITALS: BP 111/59
[2021-04-09 17:00] VITALS: BP 115/62
[2021-04-09] MEDS ORDERED: INSULIN LANTUS (GLARGINE) 1 /0.01ml (100units/ml) SC SCH ×2 (17:30→22:00)
[2021-04-09] MEDS: metFORMIN HYDROCHLORIDE 500 MG TAB PO SCH (18:21)
[2021-04-09 22:00] VITALS: BP 115/50
[2021-04-09] MEDS: ATORVASTATIN 20 MG TAB PO SCH (22:43)
[2021-04-10] MEDS: ACCU-CHEK COMFORT CURVE STRIP VI SCH ×4 (01:05→18:22)
[2021-04-10] MEDS: InsuLIN REG 1unit/0.01ml Soln (100units/ml) SC SCH ×4 (01:10→18:23)
[2021-04-10 05:00] VITALS: BP 122/50
[2021-04-10] MEDS: BUMETANIDE 2.5mg/10ml (0.25 mg/ml) INJ IV SCH ×2 (06:36→18:22)
[2021-04-10] MEDS: Glucerna Carbsteady SHAKE Vanilla 8oz PO SCH ×3 (08:00→18:00)
[2021-04-10] MEDS: metFORMIN HYDROCHLORIDE 500 MG TAB PO SCH ×2 (08:30→18:22)
[2021-04-10 09:00] VITALS: BP 122/58
[2021-04-10] MEDS: PANTOPRAZOLE 40 MG/10 ML VIAL INJ IV SCH (10:06)
[2021-04-10] MEDS: METOPROLOL SUCCINATE XL 50 MG TAB PO SCH (10:07)
[2021-04-10] MEDS: AMIODARONE HCL 200 MG TAB PO SCH (10:07)
[2021-04-10] MEDS: ASPirin 81 mg TAB PO SCH (10:07)
[2021-04-10] MEDS ORDERED: APIXABAN 2.5 MG TAB PO SCH (10:31)
[2021-04-10 13:00] VITALS: BP 105/54
[2021-04-10 15:41] VITALS: BP 105/54
[2021-04-10 16:53] VITALS: BP 102/50
== END 2021-04-10 19:58 | DRG 870 ==
LOC: ER 10:08 → EDBD 10:08 → TELE 14:30 → CATH ICU 03-30 20:29 → TELE-WESTW 04-03 21:00
PROVIDERS: ADMIT Hospitalist; ATTEND Internal Medicine
PROC: 5A1955Z Respiratory Ventilation, Greater than 96 Consecutive Hours (ICD-10-PCS; principal; 2021-03-28)
PROC: 0BH17EZ Insertion of Endotracheal Airway into Trachea, Via Natural or Artificial Opening (ICD-10-PCS; 2021-03-28)
DX: A41.9 Sepsis, unspecified organism (principal); E11.10 Type 2 diabetes mellitus with ketoacidosis without coma; J96.01 Acute respiratory failure with hypoxia; R65.21 Severe sepsis with septic shock; N17.0 Acute kidney failure with tubular necrosis; N18.4 Chronic kidney disease, stage 4 (severe); E87.3 Alkalosis; J98.11 Atelectasis; E46 Unspecified protein-calorie malnutrition; D64.9 Anemia, unspecified; D72.829 Elevated white blood cell count, unspecified; E66.01 Morbid (severe) obesity due to excess calories; E78.5 Hyperlipidemia, unspecified; E87.5 Hyperkalemia; E88.09 Other disorders of plasma-protein metabolism, not elsewhere classified; E11.65 Type 2 diabetes mellitus with hyperglycemia; I50.9 Heart failure, unspecified; E87.6 Hypokalemia; E11.21 Type 2 diabetes mellitus with diabetic nephropathy; I48.91 Unspecified atrial fibrillation; L89.92 Pressure ulcer of unspecified site, stage 2; S30.0XXA Contusion of lower back and pelvis, initial encounter; X58.XXXA Exposure to other specified factors, initial encounter; Z79.4 Long term (current) use of insulin; Y93.89 Activity, other specified; Y92.89 Other specified places as the place of occurrence of the external cause; Y99.8 Other external cause status; Z68.37 Body mass index [BMI] 37.0-37.9, adult
CPT/HCPCS: 31500; 36415; 36556; 36600; 70450; 71045; 80053; 80061; 81001; 82010; 82306; 82805; 82962; 83036; 83605; 83735; 83880; 83930; 83970; 84100; 84443; 84484; 84550; 85025; 85379; 87040; 87070; 87077; 87081; 87205; 87426; 92610; 93005; 93306; 94002; 94003; 94640; 96365; 96375; 97110; 97116; 97163; 97530; 99291; C9113; G0378; J0330; J1815; J2250; J7060

== ENCOUNTER 2021-04-16 06:24 | Inpatient (IN) | payer MEDICARE, OTHER ==
[2021-04-16] VITALS (15 sets, daily range): BP systolic 96–137; BP diastolic 36–78
[~2021-04-16] VITALS: Ht 160 cm; Wt 94.1 kg
[~2021-04-16 06:24] MED LIST: APIX5TAB PO; ASPI1CHW15 PO; ATOR20TA50 PO; INSLANTI SC; INSREGI SC; METO-6 PO
[2021-04-16] MEDS ORDERED: SODIUM CHLORIDE 0.9% 1,000 ML IVB ONE (07:00)
[2021-04-16 07:13] LABS: Hemoglobin 11.7 g/dL (12.2-16.2); Mean Corpuscular Hemoglobin 27.2 pg (28.0-32.0); Mean Corpuscular Hgb Conc. 27.9 g/dL (32.0-36.0); Mean Corpuscular Volume 97.6 fL (80.0-100.0); Red Cell Distribution Width 16.1 % (11.8-14.3); White Blood Cell 24.9 10^3/uL (4.4-10.8)
[2021-04-16] MEDS ORDERED: DOPamine 1600MCG/ML D5W 250 ML IV ONE ×2 (07:17→07:30)
[2021-04-16 07:18] LABS: Basophils % (manual) 0 (0.0-2.0); Blast Cells 0; Eosinophils % (manual) 0 (0-7); Metamyelocytes % 0; Myelocytes % 0; Promyelocytes % 0; Reactive Lymphocytes 0
[2021-04-16] MEDS: NOREPINEPHRINE 8 MG/250ML KIT 250 ML IV SCH (07:23)
[2021-04-16 07:29] LABS: Albumin 2.3 g/dL (3.4-5.0); Calcium 8.5 mg/dL (8.5-10.1)
[2021-04-16 07:31] LABS: Lactic Acid w/Reflex 11.7 mmol/L (0.4-2.0)
[2021-04-16 07:32] LABS: Total Protein 6.1 g/dL (6.4-8.2)
[2021-04-16 07:37] LABS: Bilirubin, Total 0.7 mg/dL (0.2-1.0)
[2021-04-16 07:43] LABS: BUN/Creatinine Ratio 15.1
[2021-04-16] MEDS ORDERED: MIDAZOLAM HCL 5 MG/ML-1ML VIAL ONE ×2 (07:48→07:50)
[2021-04-16] MEDS ORDERED: NOREPINEPHRINE 8 MG/250ML KIT 250 ML IV ONE (07:50)
[2021-04-16] MEDS ORDERED: MIDAZOLAM DRIP 50 mg/50mL 50 ML IV ONE (07:50)
[2021-04-16] MEDS ORDERED: SODIUM BICARBONATE 8.4 % INJ 50ML VIAL IV ONE ×3 (07:51→09:30)
[2021-04-16] MEDS ORDERED: ETOMIDATE (2MG/ML) 20ML VIAL IV ONE (07:51)
[2021-04-16] MEDS: MIDAZOLAM DRIP 50 mg/50mL 50 ML IV SCH ×2 (08:00→21:58)
[2021-04-16] MEDS ORDERED: cefTRIAXone 1GM/50ML D5W 50 ML IV ONE (08:15)
[2021-04-16] MEDS ORDERED: InsuLIN REG 1unit/0.01ml Soln (100units/ml) IV ONE (08:15)
[2021-04-16] MEDS ORDERED: InsuLIN R (HUMAN) 100 UNITS in SODIUM CHL 0.9% 99 ML IV SCH ×4 (08:15)
[2021-04-16] MEDS ORDERED: DEXTROSE (50%) 50ML SYRG IV PRN ×2 (08:15→16:30)
[2021-04-16] MEDS ORDERED: MIDAZOLAM HCL 5 MG/ML-1ML VIAL IV ONE (08:15)
[2021-04-16] MEDS: ACCU-CHEK COMFORT CURVE STRIP VI SCH ×10 (08:49→23:00)
[2021-04-16 08:50] LABS: Band Neutrophils % (manual) 7; Lymphocytes % (manual) 7 (10.0-50.0); Monocytes % (manual) 5 (0-12)
[2021-04-16 08:54] LABS: Lipase 118 U/L (73-393)
[2021-04-16 09:59] LABS: Amphetamine Screen, Urine NEGATIVE (NEGATIVE); Barbiturate Scree,Urine NEGATIVE (NEGATIVE); Benzodiazephine Screen, Urine POSITIVE (NEGATIVE); Cannabinoid Screen, Urine NEGATIVE (NEGATIVE); Cocaine Screen, Urine NEGATIVE (NEGATIVE); Phencyclidine Screen, Urine NEGATIVE (NEGATIVE)
[2021-04-16] MEDS ORDERED: NITROGLYCERIN 0.4 MG SL TAB SL PRN (10:00)
[2021-04-16] MEDS ORDERED: ENOXAPARIN SOD 30 MG/0.3 ML SYRINGE SC SCH (10:00)
[2021-04-16] MEDS ORDERED: MORPHINE SULFATE INJECTION 2 MG/ML SYRG IV PRN (10:00)
[2021-04-16 10:07] LABS: Opiate Scree,Urine NEGATIVE (NEGATIVE)
[2021-04-16 10:41] LABS: Urine Bacteria FEW /hpf (None Seen); Urine Blood 3+ /uL (Negative); Urine Hyaline Cast FEW /lpf (0 - 2); Urine Mucus FEW (None Seen); Urine Specific Gravity 1.018 (1.001-1.035); Urine WBC 161 /hpf (0 - 5)
[2021-04-16] MEDS: SODIUM CHLORIDE 0.9% 1,000 ML IV SCH ×2 (11:26→18:26)
[2021-04-16] MEDS ORDERED: InsuLIN REG 1unit/0.01ml Soln (100units/ml) ONE (12:58)
[2021-04-16] MEDS ORDERED: D5W/SOD CHLO 0.9% 1,000 ML IV PRN (17:15)
[2021-04-16] MEDS: InsuLIN REG 1unit/0.01ml Soln (100units/ml) SC SCH (18:00)
[2021-04-16] MEDS ORDERED: ACETAMINOPHEN 650 mg PER 20.3 mL UD GT PRN (18:15)
[2021-04-16] MEDS: InsuLIN R (HUMAN) 100 UNITS in SODIUM CHL 0.9% 99 ML IV SCH (18:21)
[2021-04-16 19:35] LABS: BUN/Creatinine Ratio 14.4; Calcium 7.3 mg/dL (8.5-10.1)
[2021-04-16 19:55] LABS: Potassium 2.9 mmol/L (3.5-5.1)
[2021-04-16] MEDS: DOPamine 1600MCG/ML D5W 250 ML IV SCH (20:47)
[2021-04-16] MEDS: POTASSIUM CHL 10MEQ/50ML 50 ML IV SCH ×3 (21:20→22:36)
[2021-04-16] MEDS: INSULIN LANTUS (GLARGINE) 1 /0.01ml (100units/ml) SC SCH (22:02)
[2021-04-17] VITALS (69 sets, daily range): BP systolic 57–191; BP diastolic 31–146
[2021-04-17] MEDS: POTASSIUM CHL 10MEQ/50ML 50 ML IV SCH (00:03)
[2021-04-17] MEDS: ACCU-CHEK COMFORT CURVE STRIP VI SCH ×14 (00:03→18:00)
[2021-04-17] MEDS: InsuLIN R (HUMAN) 100 UNITS in SODIUM CHL 0.9% 99 ML IV SCH (00:04)
[2021-04-17 00:05] LABS: BUN/Creatinine Ratio 16.3; Calcium 7.3 mg/dL (8.5-10.1); Potassium 3.9 mmol/L (3.5-5.1)
[2021-04-17] MEDS: SODIUM CHLORIDE 0.9% 1,000 ML IV SCH ×2 (02:40→11:25)
[2021-04-17] MEDS: NOREPINEPHRINE 8 MG/250ML KIT 250 ML IV SCH ×3 (04:21→19:00)
[2021-04-17] MEDS: MIDAZOLAM DRIP 50 mg/50mL 50 ML IV SCH ×4 (04:22→19:00)
[2021-04-17] MEDS: InsuLIN REG 1unit/0.01ml Soln (100units/ml) SC SCH ×4 (06:00→17:30)
[2021-04-17] MEDS: INSULIN LANTUS (GLARGINE) 1 /0.01ml (100units/ml) SC SCH ×2 (06:49→22:00)
[2021-04-17 07:24] LABS: Potassium 3.5 mmol/L (3.5-5.1)
[2021-04-17 07:27] LABS: Basophils # (auto) 0.1 10 ^3/uL (0-0.2); Basophils % (auto) 0.4 % (0.0-2.0); Eosinophils # (auto) 0 10 ^3/uL (0-0.8); Hematocrit 32.2 % (36.0-46.0); Hemoglobin 10.7 g/dL (12.2-16.2); Lymphocytes # (auto) 2.5 10 ^3/uL (0.4-5.4); Lymphocytes % (auto) 10.4 % (10.0-50.0); Mean Corpuscular Hemoglobin 27.6 pg (28.0-32.0); Mean Corpuscular Hgb Conc. 33.3 g/dL (32.0-36.0); Mean Corpuscular Volume 82.8 fL (80.0-100.0); Monocytes # (auto) 2.3 10 ^3/uL (0-1.3); Monocytes % (auto) 9.7 % (0.0-12.0); Neutrophils % (auto) 79.5 % (37.0-80.0); Red Blood Cells 3.88 10^6/uL (4.0-5.20); Red Cell Distribution Width 14.6 % (11.8-14.3); White Blood Cell 23.9 10^3/uL (4.4-10.8)
[2021-04-17 07:33] LABS: Albumin 1.9 g/dL (3.4-5.0); Bilirubin, Total 0.3 mg/dL (0.2-1.0); Calcium 7.4 mg/dL (8.5-10.1); Total Protein 5.1 g/dL (6.4-8.2)
[2021-04-17] MEDS: cefTRIAXone 1GM/50ML D5W 50 ML IV SCH (09:16)
[2021-04-17] MEDS: DOPamine 1600MCG/ML D5W 250 ML IV SCH (09:38)
[2021-04-17] MEDS ORDERED: PANTOPRAZOLE 40 MG/10 ML VIAL INJ IV SCH (10:00)
[2021-04-17 12:54] LABS: INR 1.09 (0.9-1.15)
[2021-04-17 12:56] LABS: BUN/Creatinine Ratio 17.6; Calcium 7.2 mg/dL (8.5-10.1); Potassium 3.4 mmol/L (3.5-5.1)
[2021-04-17] MEDS ORDERED: POTASSIUM PHOSPHATE 44 MEQ in D5W 5% 250 ML IV ONE (15:30)
[2021-04-17] MEDS: SOD CHL 0.9%/ KCL 20MEQ 1,000 ML IV SCH (16:49)
[2021-04-17] MEDS: PANTOPRAZOLE 40 MG/10 ML VIAL INJ IV SCH (22:00)
[2021-04-18] VITALS (97 sets, daily range): BP systolic 95–208; BP diastolic 41–84
[2021-04-18] MEDS: ACCU-CHEK COMFORT CURVE STRIP VI SCH ×4 (00:13→17:13)
[2021-04-18] MEDS: InsuLIN REG 1unit/0.01ml Soln (100units/ml) SC SCH ×4 (00:14→17:13)
[2021-04-18] MEDS: NOREPINEPHRINE 8 MG/250ML KIT 250 ML IV SCH ×3 (03:40→23:00)
[2021-04-18 04:11] LABS: Basophils # (auto) 0.1 10 ^3/uL (0-0.2); Basophils % (auto) 0.4 % (0.0-2.0); Eosinophils # (auto) 0 10 ^3/uL (0-0.8); Eosinophils % (auto) 0.1 % (0.0-7.0); Hematocrit 30.5 % (36.0-46.0); Hemoglobin 10.2 g/dL (12.2-16.2); Lymphocytes # (auto) 2.3 10 ^3/uL (0.4-5.4); Mean Corpuscular Hemoglobin 27.6 pg (28.0-32.0); Mean Corpuscular Hgb Conc. 33.3 g/dL (32.0-36.0); Mean Corpuscular Volume 82.7 fL (80.0-100.0); Monocytes # (auto) 1.3 10 ^3/uL (0-1.3); Monocytes % (auto) 8.1 % (0.0-12.0); Neutrophils # (auto) 12.9 10 ^3/uL (1.6-8.6); Neutrophils % (auto) 77.4 % (37.0-80.0); Nucleated Red Blood Cells % 0.2 %; Red Blood Cells 3.69 10^6/uL (4.0-5.20); Red Cell Distribution Width 15.3 % (11.8-14.3); White Blood Cell 16.6 10^3/uL (4.4-10.8)
[2021-04-18] MEDS: SOD CHL 0.9%/ KCL 20MEQ 1,000 ML IV SCH (04:20)
[2021-04-18 04:34] LABS: Calcium 7.2 mg/dL (8.5-10.1); Potassium 4.4 mmol/L (3.5-5.1)
[2021-04-18 04:37] LABS: BUN/Creatinine Ratio 18.3
[2021-04-18] MEDS: INSULIN LANTUS (GLARGINE) 1 /0.01ml (100units/ml) SC SCH ×2 (05:56→22:00)
[2021-04-18] MEDS: PANTOPRAZOLE 40 MG/10 ML VIAL INJ IV SCH ×2 (09:52→22:00)
[2021-04-18] MEDS: cefTRIAXone 1GM/50ML D5W 50 ML IV SCH (09:52)
[2021-04-18] MEDS ORDERED: DOXYCYCLINE 100MG/250ML 250 ML IV SCH (10:30)
[2021-04-18] MEDS: CLINDAMYCIN 600MG IV 50 ML IV SCH ×2 (13:22→22:58)
[2021-04-18] MEDS: SODIUM CHLORIDE 0.9% 1,000 ML IV SCH (14:09)
[2021-04-19] VITALS (100 sets, daily range): BP systolic 91–131; BP diastolic 48–74
[2021-04-19] MEDS: InsuLIN REG 1unit/0.01ml Soln (100units/ml) SC SCH ×4 (00:09→18:29)
[2021-04-19] MEDS: ACCU-CHEK COMFORT CURVE STRIP VI SCH ×4 (00:09→18:29)
[2021-04-19] MEDS: SODIUM CHLORIDE 0.9% 1,000 ML IV SCH ×2 (03:02→15:29)
[2021-04-19] MEDS: CLINDAMYCIN 600MG IV 50 ML IV SCH ×3 (06:29→22:00)
[2021-04-19] MEDS: INSULIN LANTUS (GLARGINE) 1 /0.01ml (100units/ml) SC SCH ×2 (06:33→22:00)
[2021-04-19 08:06] LABS: Basophils # (auto) 0.1 10 ^3/uL (0-0.2); Basophils % (auto) 0.9 % (0.0-2.0); Eosinophils # (auto) 0.2 10 ^3/uL (0-0.8); Eosinophils % (auto) 1.7 % (0.0-7.0); Hematocrit 30.3 % (36.0-46.0); Hemoglobin 9.9 g/dL (12.2-16.2); Lymphocytes # (auto) 1.8 10 ^3/uL (0.4-5.4); Lymphocytes % (auto) 18.3 % (10.0-50.0); Mean Corpuscular Hemoglobin 27.7 pg (28.0-32.0); Mean Corpuscular Hgb Conc. 32.7 g/dL (32.0-36.0); Mean Corpuscular Volume 84.7 fL (80.0-100.0); Monocytes # (auto) 0.9 10 ^3/uL (0-1.3); Neutrophils # (auto) 7.1 10 ^3/uL (1.6-8.6); Neutrophils % (auto) 70.1 % (37.0-80.0); Nucleated Red Blood Cells % 0.1 %; Red Blood Cells 3.58 10^6/uL (4.0-5.20); Red Cell Distribution Width 15.6 % (11.8-14.3); White Blood Cell 10.1 10^3/uL (4.4-10.8)
[2021-04-19] MEDS: MIDAZOLAM DRIP 50 mg/50mL 50 ML IV SCH (08:15)
[2021-04-19 08:22] LABS: BUN/Creatinine Ratio 13.2; Calcium 7.4 mg/dL (8.5-10.1); Potassium 3.6 mmol/L (3.5-5.1)
[2021-04-19] MEDS: PANTOPRAZOLE 40 MG/10 ML VIAL INJ IV SCH ×2 (09:21→22:00)
[2021-04-19] MEDS: cefTRIAXone 1GM/50ML D5W 50 ML IV SCH (09:22)
[2021-04-19] MEDS ORDERED: methylPREDNISolone SOD SUCC 40 MG/ML VL IV ONE (11:30)
[2021-04-20] VITALS (75 sets, daily range): BP systolic 86–131; BP diastolic 38–84
[2021-04-20] MEDS: ACCU-CHEK COMFORT CURVE STRIP VI SCH ×4 (00:28→17:35)
[2021-04-20] MEDS: InsuLIN REG 1unit/0.01ml Soln (100units/ml) SC SCH ×4 (00:29→17:35)
[2021-04-20 04:39] LABS: Basophils # (auto) 0 10 ^3/uL (0-0.2); Basophils % (auto) 0.2 % (0.0-2.0); Eosinophils # (auto) 0 10 ^3/uL (0-0.8); Hematocrit 30.3 % (36.0-46.0); Lymphocytes # (auto) 0.8 10 ^3/uL (0.4-5.4); Lymphocytes % (auto) 8.6 % (10.0-50.0); Mean Corpuscular Hemoglobin 27.9 pg (28.0-32.0); Mean Corpuscular Hgb Conc. 33.1 g/dL (32.0-36.0); Mean Corpuscular Volume 84.5 fL (80.0-100.0); Monocytes # (auto) 0.4 10 ^3/uL (0-1.3); Monocytes % (auto) 4.9 % (0.0-12.0); Neutrophils # (auto) 7.7 10 ^3/uL (1.6-8.6); Neutrophils % (auto) 86.3 % (37.0-80.0); Nucleated Red Blood Cells % 0.1 %; Red Blood Cells 3.59 10^6/uL (4.0-5.20); Red Cell Distribution Width 15.6 % (11.8-14.3)
[2021-04-20 05:24] LABS: Albumin 1.3 g/dL (3.4-5.0); Calcium 7.2 mg/dL (8.5-10.1); Potassium 4.2 mmol/L (3.5-5.1)
[2021-04-20 05:26] LABS: BUN/Creatinine Ratio 16.4
[2021-04-20 05:29] LABS: Bilirubin, Total 0.5 mg/dL (0.2-1.0); Total Protein 4.1 g/dL (6.4-8.2)
[2021-04-20] MEDS: SODIUM CHLORIDE 0.9% 1,000 ML IV SCH (05:36)
[2021-04-20] MEDS: INSULIN LANTUS (GLARGINE) 1 /0.01ml (100units/ml) SC SCH ×2 (05:55→21:56)
[2021-04-20] MEDS: CLINDAMYCIN 600MG IV 50 ML IV SCH ×3 (05:59→21:55)
[2021-04-20] MEDS: NOREPINEPHRINE 8 MG/250ML KIT 250 ML IV SCH (08:15)
[2021-04-20] MEDS: MIDAZOLAM DRIP 50 mg/50mL 50 ML IV SCH (08:15)
[2021-04-20] MEDS: cefTRIAXone 1GM/50ML D5W 50 ML IV SCH (08:26)
[2021-04-20] MEDS ORDERED: methylPREDNISolone SOD SUCC 40 MG/ML VL IV SCH (10:00)
[2021-04-20] MEDS: PANTOPRAZOLE 40 MG/10 ML VIAL INJ IV SCH ×2 (10:07→21:55)
[2021-04-20] MEDS: D5W/SOD CHLO 0.9% 1,000 ML IV SCH ×2 (10:36→23:30)
[2021-04-21] VITALS (56 sets, daily range): BP systolic 103–137; BP diastolic 45–96
[2021-04-21] MEDS: InsuLIN REG 1unit/0.01ml Soln (100units/ml) SC SCH ×5 (00:30→23:15)
[2021-04-21 04:31] LABS: Basophils # (auto) 0 10 ^3/uL (0-0.2); Basophils % (auto) 0.4 % (0.0-2.0); Eosinophils # (auto) 0 10 ^3/uL (0-0.8); Eosinophils % (auto) 0.3 % (0.0-7.0); Hematocrit 29.5 % (36.0-46.0); Hemoglobin 9.8 g/dL (12.2-16.2); Lymphocytes # (auto) 2.1 10 ^3/uL (0.4-5.4); Lymphocytes % (auto) 21.3 % (10.0-50.0); Mean Corpuscular Hemoglobin 27.8 pg (28.0-32.0); Mean Corpuscular Hgb Conc. 33.1 g/dL (32.0-36.0); Mean Corpuscular Volume 83.8 fL (80.0-100.0); Monocytes # (auto) 0.9 10 ^3/uL (0-1.3); Monocytes % (auto) 9.4 % (0.0-12.0); Neutrophils # (auto) 6.9 10 ^3/uL (1.6-8.6); Neutrophils % (auto) 68.6 % (37.0-80.0); Red Blood Cells 3.52 10^6/uL (4.0-5.20); Red Cell Distribution Width 15.5 % (11.8-14.3)
[2021-04-21 04:47] LABS: BUN/Creatinine Ratio 16.4; Calcium 7.5 mg/dL (8.5-10.1); Potassium 3.5 mmol/L (3.5-5.1)
[2021-04-21] MEDS: CLINDAMYCIN 600MG IV 50 ML IV SCH ×3 (06:00→22:49)
[2021-04-21] MEDS: ACCU-CHEK COMFORT CURVE STRIP VI SCH ×5 (06:00→23:18)
[2021-04-21] MEDS: INSULIN LANTUS (GLARGINE) 1 /0.01ml (100units/ml) SC SCH ×2 (07:00→23:00)
[2021-04-21] MEDS: MIDAZOLAM DRIP 50 mg/50mL 50 ML IV SCH (08:15)
[2021-04-21] MEDS: cefTRIAXone 1GM/50ML D5W 50 ML IV SCH (09:02)
[2021-04-21] MEDS: NOREPINEPHRINE 8 MG/250ML KIT 250 ML IV SCH (09:02)
[2021-04-21] MEDS: PANTOPRAZOLE 40 MG/10 ML VIAL INJ IV SCH ×2 (10:46→22:49)
[2021-04-21] MEDS ORDERED: SODIUM CHLORIDE 0.9% 1,000 ML IV SCH (15:45)
[2021-04-22] VITALS (8 sets, daily range): BP systolic 98–157; BP diastolic 48–79
[2021-04-22 04:52] LABS: Basophils # (auto) 0 10 ^3/uL (0-0.2); Basophils % (auto) 0.5 % (0.0-2.0); Eosinophils # (auto) 0.5 10 ^3/uL (0-0.8); Eosinophils % (auto) 5.3 % (0.0-7.0); Hemoglobin 9.5 g/dL (12.2-16.2); Lymphocytes # (auto) 2.1 10 ^3/uL (0.4-5.4); Lymphocytes % (auto) 24.8 % (10.0-50.0); Mean Corpuscular Hemoglobin 27.8 pg (28.0-32.0); Mean Corpuscular Hgb Conc. 32.9 g/dL (32.0-36.0); Mean Corpuscular Volume 84.5 fL (80.0-100.0); Monocytes % (auto) 11.8 % (0.0-12.0); Neutrophils % (auto) 57.6 % (37.0-80.0); Nucleated Red Blood Cells % 0.1 %; Red Blood Cells 3.43 10^6/uL (4.0-5.20); Red Cell Distribution Width 15.6 % (11.8-14.3); White Blood Cell 8.6 10^3/uL (4.4-10.8)
[2021-04-22 05:02] LABS: Calcium 7.1 mg/dL (8.5-10.1); Potassium 3.1 mmol/L (3.5-5.1)
[2021-04-22 05:05] LABS: BUN/Creatinine Ratio 14.9
[2021-04-22] MEDS: CLINDAMYCIN 600MG IV 50 ML IV SCH ×3 (06:23→21:31)
[2021-04-22] MEDS: ACCU-CHEK COMFORT CURVE STRIP VI SCH ×3 (06:23→17:34)
[2021-04-22] MEDS: INSULIN LANTUS (GLARGINE) 1 /0.01ml (100units/ml) SC SCH (06:26)
[2021-04-22] MEDS: InsuLIN REG 1unit/0.01ml Soln (100units/ml) SC SCH ×3 (06:26→17:33)
[2021-04-22] MEDS: PANTOPRAZOLE 40 MG/10 ML VIAL INJ IV SCH (09:00)
[2021-04-22] MEDS: PANTOPRAZOLE 40 MG TAB PO SCH (10:00)
[2021-04-22] MEDS ORDERED: POTASSIUM EFFERVESENT TAB 25 MEQ PO ONE (10:00)
[2021-04-22] MEDS: ONDANSETRON HCL 4 MG/2 ML VIAL IV PRN (10:25)
[2021-04-22] MEDS ORDERED: FLUCONAZOLE 200MG/100ML 100 ML IV ONE (14:15)
[2021-04-22] MEDS: APIXABAN 5 MG TAB PO SCH (21:31)
[2021-04-23] MEDS: ACCU-CHEK COMFORT CURVE STRIP VI SCH ×5 (00:25→23:38)
[2021-04-23] MEDS: InsuLIN REG 1unit/0.01ml Soln (100units/ml) SC SCH ×5 (00:25→23:40)
[2021-04-23 05:00] VITALS: BP 143/64
[2021-04-23] MEDS: CLINDAMYCIN 600MG IV 50 ML IV SCH ×3 (06:09→21:29)
[2021-04-23 06:58] LABS: Basophils # (auto) 0.1 10 ^3/uL (0-0.2); Basophils % (auto) 0.8 % (0.0-2.0); Eosinophils # (auto) 0.6 10 ^3/uL (0-0.8); Eosinophils % (auto) 6.6 % (0.0-7.0); Hematocrit 30.6 % (36.0-46.0); Mean Corpuscular Hemoglobin 27.9 pg (28.0-32.0); Mean Corpuscular Hgb Conc. 32.6 g/dL (32.0-36.0); Mean Corpuscular Volume 85.4 fL (80.0-100.0); Monocytes # (auto) 0.9 10 ^3/uL (0-1.3); Monocytes % (auto) 10.3 % (0.0-12.0); Neutrophils # (auto) 5.2 10 ^3/uL (1.6-8.6); Neutrophils % (auto) 59.3 % (37.0-80.0); Nucleated Red Blood Cells % 0.1 %; Red Blood Cells 3.59 10^6/uL (4.0-5.20); Red Cell Distribution Width 16.3 % (11.8-14.3); White Blood Cell 8.7 10^3/uL (4.4-10.8)
[2021-04-23 09:00] VITALS: BP 143/66
[2021-04-23] MEDS: APIXABAN 5 MG TAB PO SCH ×2 (09:33→21:29)
[2021-04-23] MEDS: PANTOPRAZOLE 40 MG TAB PO SCH (09:34)
[2021-04-23] MEDS ORDERED: FLUCONAZOLE 200MG/100ML 100 ML IV SCH (10:00)
[2021-04-23] MEDS: INSULIN LANTUS (GLARGINE) 1 /0.01ml (100units/ml) SC SCH (10:00)
[2021-04-23 13:00] VITALS: BP 141/67
[2021-04-23 17:00] VITALS: BP 153/77
[2021-04-23 22:00] VITALS: BP 138/64
[2021-04-24 05:00] VITALS: BP 158/59
[2021-04-24] MEDS: ACCU-CHEK COMFORT CURVE STRIP VI SCH ×4 (05:52→23:03)
[2021-04-24] MEDS: CLINDAMYCIN 600MG IV 50 ML IV SCH ×3 (05:52→22:06)
[2021-04-24] MEDS: InsuLIN REG 1unit/0.01ml Soln (100units/ml) SC SCH ×4 (05:59→23:05)
[2021-04-24 06:52] LABS: Basophils # (auto) 0.1 10 ^3/uL (0-0.2); Eosinophils # (auto) 0.5 10 ^3/uL (0-0.8); Eosinophils % (auto) 5.5 % (0.0-7.0); Hematocrit 29.8 % (36.0-46.0); Hemoglobin 10.2 g/dL (12.2-16.2); Lymphocytes # (auto) 2.9 10 ^3/uL (0.4-5.4); Lymphocytes % (auto) 33.8 % (10.0-50.0); Mean Corpuscular Hemoglobin 28.4 pg (28.0-32.0); Mean Corpuscular Hgb Conc. 34.2 g/dL (32.0-36.0); Mean Corpuscular Volume 82.9 fL (80.0-100.0); Monocytes # (auto) 0.9 10 ^3/uL (0-1.3); Monocytes % (auto) 10.3 % (0.0-12.0); Neutrophils # (auto) 4.2 10 ^3/uL (1.6-8.6); Neutrophils % (auto) 49.4 % (37.0-80.0); Nucleated Red Blood Cells % 0.1 %; Red Blood Cells 3.59 10^6/uL (4.0-5.20); Red Cell Distribution Width 15.9 % (11.8-14.3); White Blood Cell 8.4 10^3/uL (4.4-10.8)
[2021-04-24 07:05] LABS: BUN/Creatinine Ratio 7.7; Calcium 7.1 mg/dL (8.5-10.1); Potassium 3.1 mmol/L (3.5-5.1)
[2021-04-24 08:35] VITALS: BP 145/67
[2021-04-24] MEDS ORDERED: POTASSIUM CHL 20 Meq TABLET PO ONE (08:45)
[2021-04-24] MEDS: FLUCONAZOLE 100 MG TAB PO SCH (10:00)
[2021-04-24] MEDS: APIXABAN 5 MG TAB PO SCH ×2 (10:00→22:06)
[2021-04-24] MEDS: PANTOPRAZOLE 40 MG TAB PO SCH (10:00)
[2021-04-24] MEDS: INSULIN LANTUS (GLARGINE) 1 /0.01ml (100units/ml) SC SCH (10:00)
[2021-04-24] MEDS ORDERED: POTASSIUM CHL 10MEQ/50ML 50 ML IV ONE (10:21)
[2021-04-24 13:00] VITALS: BP 154/56
[2021-04-24 17:00] VITALS: BP 138/86
[2021-04-24] MEDS: ONDANSETRON HCL 4 MG/2 ML VIAL IV PRN (17:47)
[2021-04-24 22:00] VITALS: BP 94/40
[2021-04-25 05:00] VITALS: BP 127/54
[2021-04-25] MEDS: ACCU-CHEK COMFORT CURVE STRIP VI SCH ×2 (05:36→12:00)
[2021-04-25] MEDS: CLINDAMYCIN 600MG IV 50 ML IV SCH (05:36)
[2021-04-25] MEDS: InsuLIN REG 1unit/0.01ml Soln (100units/ml) SC SCH ×2 (05:37→12:00)
[2021-04-25 09:00] VITALS: BP 130/50
[2021-04-25] MEDS ORDERED: methylPREDNISolone SOD SUCC 40 MG/ML VL IV ONE (09:00)
[2021-04-25] MEDS: INSULIN LANTUS (GLARGINE) 1 /0.01ml (100units/ml) SC SCH (10:00)
[2021-04-25] MEDS: PANTOPRAZOLE 40 MG TAB PO SCH (10:00)
[2021-04-25] MEDS: FLUCONAZOLE 100 MG TAB PO SCH (10:00)
[2021-04-25] MEDS: APIXABAN 5 MG TAB PO SCH (10:00)
[2021-04-25] MEDS ORDERED: methylPREDNISolone SOD SUCC 40 MG/ML VL ONE (10:26)
[2021-04-25 10:42] LABS: Uric Acid 2.7 mg/dL (2.6-6.0)
[2021-04-25 13:00] VITALS: BP 144/54
[2021-04-25] MEDS ORDERED: CLIN300C8 PO (13:00)
[2021-04-25] MEDS ORDERED: COLC1TAB3 PO (13:00)
[2021-04-25 15:41] VITALS: BP 142/75
== END 2021-04-25 17:05 | disposition home health service (06) | DRG 870 ==
LOC: EDBD 06:24 → ER 06:24 → TELE 09:52 → ICU WEST 04-17 10:16 → TELE-CENTR 04-22 14:42
PROVIDERS: ADMIT Internal Medicine; ATTEND Internal Medicine
PROC: 0BH17EZ Insertion of Endotracheal Airway into Trachea, Via Natural or Artificial Opening (ICD-10-PCS; principal; 2021-04-16)
PROC: 5A1955Z Respiratory Ventilation, Greater than 96 Consecutive Hours (ICD-10-PCS; 2021-04-16)
DX: A41.50 Gram-negative sepsis, unspecified (principal); E11.10 Type 2 diabetes mellitus with ketoacidosis without coma; R65.21 Severe sepsis with septic shock; J96.01 Acute respiratory failure with hypoxia; G93.41 Metabolic encephalopathy; E43 Unspecified severe protein-calorie malnutrition; J18.9 Pneumonia, unspecified organism; N17.0 Acute kidney failure with tubular necrosis; N39.0 Urinary tract infection, site not specified; Z99.11 Dependence on respirator [ventilator] status; I13.0 Hypertensive heart and chronic kidney disease with heart failure and stage 1 through stage 4 chronic kidney disease, or unspecified chronic kidney disease; N18.9 Chronic kidney disease, unspecified; D64.9 Anemia, unspecified; E86.0 Dehydration; E83.39 Other disorders of phosphorus metabolism; E87.6 Hypokalemia; E88.09 Other disorders of plasma-protein metabolism, not elsewhere classified; I48.0 Paroxysmal atrial fibrillation; I50.9 Heart failure, unspecified; E11.22 Type 2 diabetes mellitus with diabetic chronic kidney disease; E78.00 Pure hypercholesterolemia, unspecified; E78.5 Hyperlipidemia, unspecified; E11.649 Type 2 diabetes mellitus with hypoglycemia without coma; Z20.822 Contact with and (suspected) exposure to COVID-19; Z68.38 Body mass index [BMI] 38.0-38.9, adult
CPT/HCPCS: 31500; 36415; 36600; 70450; 71045; 80048; 80053; 80307; 81001; 82805; 82962; 83605; 83690; 83735; 84100; 84295; 84443; 84484; 84550; 85007; 85025; 85027; 85610; 85652; 87040; 87070; 87076; 87077; 87081; 87086; 87088; 87186; 87205; 87426; 92610; 93005; 94002; 94003; 96365; 96366; 96368; 96375; 97116; 97163; 97530; 99291; C9113; G0378; J0696; J1450; J1815; J2250; J2405; J3490; J7042; J7060

== ENCOUNTER 2021-05-02 22:04 | Inpatient (IN) | payer MEDICARE, OTHER ==
[~2021-05-02] VITALS: Ht 157.5 cm; Wt 88.7 kg
[~2021-05-02 22:04] MED LIST changes: -ASPI1CHW15 PO; +CLIN300C8 PO; +COLC1TAB3 PO
[2021-05-02 23:07] LABS: Basophils # (auto) 0.1 10 ^3/uL (0-0.2); Basophils % (auto) 1.2 % (0.0-2.0); Eosinophils # (auto) 0.1 10 ^3/uL (0-0.8); Eosinophils % (auto) 1.4 % (0.0-7.0); Hematocrit 34.3 % (36.0-46.0); Hemoglobin 11.3 g/dL (12.2-16.2); Lymphocytes # (auto) 2.2 10 ^3/uL (0.4-5.4); Lymphocytes % (auto) 28.3 % (10.0-50.0); Mean Corpuscular Hemoglobin 27.8 pg (28.0-32.0); Mean Corpuscular Hgb Conc. 33.1 g/dL (32.0-36.0); Mean Corpuscular Volume 84.1 fL (80.0-100.0); Monocytes # (auto) 0.9 10 ^3/uL (0-1.3); Monocytes % (auto) 11.6 % (0.0-12.0); Neutrophils # (auto) 4.4 10 ^3/uL (1.6-8.6); Neutrophils % (auto) 57.5 % (37.0-80.0); Red Blood Cells 4.08 10^6/uL (4.0-5.20); White Blood Cell 7.7 10^3/uL (4.4-10.8)
[2021-05-02] MEDS ORDERED: VANCOMYCIN 1GM/250ML 250 ML IV ONE (23:15)
[2021-05-02] MEDS ORDERED: PIPERACILLIN-TAZOB 3.375GM 100 ML IV ONE (23:15)
[2021-05-02 23:24] LABS: Albumin 2.1 g/dL (3.4-5.0)
[2021-05-02 23:40] LABS: Bilirubin, Total 0.5 mg/dL (0.2-1.0); Total Protein 6.3 g/dL (6.4-8.2)
[2021-05-02 23:51] LABS: Potassium 2.9 mmol/L (3.5-5.1)
[2021-05-03] MEDS ORDERED: POTASSIUM EFFERVESENT TAB 25 MEQ PO ONE (00:15)
[2021-05-03] MEDS ORDERED: DEXTROSE (50%) 50ML SYRG IV PRN (00:15)
[2021-05-03] MEDS ORDERED: MORPHINE SULFATE 4 MG/ML SYR/VIAL IV PRN (00:15)
[2021-05-03] MEDS ORDERED: POTASSIUM CHL 10MEQ/50ML 50 ML IV SCH (00:15)
[2021-05-03] MEDS ORDERED: ONDANSETRON HCL 4 MG/2 ML VIAL IV PRN (00:15)
[2021-05-03] MEDS ORDERED: VANCOMYCIN PER PHARMACY 0 MG IV SCH (00:15)
[2021-05-03] MEDS ORDERED: ACETAMINOPHEN 325 MG TAB PO PRN (00:15)
[2021-05-03] MEDS ORDERED: DOCUSATE SOD 100 MG CAP PO PRN (00:15)
[2021-05-03 05:00] VITALS: BP 123/48
[2021-05-03 05:38] VITALS: BP 123/48
[2021-05-03] MEDS ORDERED: INFLUENZA QUAD 2021-2022 0.5 ML SYRG IM ONE (05:45)
[2021-05-03] MEDS: ACCU-CHEK COMFORT CURVE STRIP VI SCH ×4 (07:16→22:49)
[2021-05-03] MEDS: PIPERACILLIN-TAZOB 3.375GM 100 ML IV SCH ×3 (07:17→23:07)
[2021-05-03] MEDS: InsuLIN REG 1unit/0.01ml Soln (100units/ml) SC SCH ×4 (08:18→23:06)
[2021-05-03 08:26] VITALS: BP 116/50
[2021-05-03] MEDS: MULTIPLE VITAMIN TAB PO SCH (10:40)
[2021-05-03] MEDS: FAMOTIDINE 20 MG TAB PO SCH (10:40)
[2021-05-03] MEDS: APIXABAN 5 MG TAB PO SCH ×2 (10:40→23:08)
[2021-05-03] MEDS: ASCORBIC ACID 500 MG TAB PO SCH ×2 (10:40→23:08)
[2021-05-03 12:00] VITALS: BP 109/52
[2021-05-03] MEDS: VANCOMYCIN 750mg/250ml 250 ML IV SCH (13:33)
[2021-05-03 16:17] VITALS: BP 115/42
[2021-05-03] MEDS: METOPROLOL SUCCINATE XL 50 MG TAB PO SCH (17:12)
[2021-05-03 22:00] VITALS: BP 121/36
[2021-05-03] MEDS: INSULIN LANTUS (GLARGINE) 1 /0.01ml (100units/ml) SC SCH (23:07)
[2021-05-03] MEDS: ATORVASTATIN 20 MG TAB PO SCH (23:08)
[2021-05-04 05:00] VITALS: BP 126/39
[2021-05-04 06:06] LABS: Basophils # (auto) 0.1 10 ^3/uL (0-0.2); Basophils % (auto) 1.3 % (0.0-2.0); Eosinophils # (auto) 0.1 10 ^3/uL (0-0.8); Eosinophils % (auto) 0.8 % (0.0-7.0); Hematocrit 30.1 % (36.0-46.0); Hemoglobin 10.1 g/dL (12.2-16.2); Lymphocytes # (auto) 1.4 10 ^3/uL (0.4-5.4); Lymphocytes % (auto) 19.6 % (10.0-50.0); Mean Corpuscular Hemoglobin 28.4 pg (28.0-32.0); Mean Corpuscular Hgb Conc. 33.6 g/dL (32.0-36.0); Mean Corpuscular Volume 84.3 fL (80.0-100.0); Monocytes # (auto) 0.8 10 ^3/uL (0-1.3); Monocytes % (auto) 11.9 % (0.0-12.0); Neutrophils # (auto) 4.6 10 ^3/uL (1.6-8.6); Neutrophils % (auto) 66.4 % (37.0-80.0); Nucleated Red Blood Cells % 0.1 %; Red Blood Cells 3.58 10^6/uL (4.0-5.20); Red Cell Distribution Width 17.4 % (11.8-14.3)
[2021-05-04 06:23] LABS: Potassium 3.3 mmol/L (3.5-5.1)
[2021-05-04 06:31] LABS: Albumin 1.9 g/dL (3.4-5.0); BUN/Creatinine Ratio 8.3; Calcium 8.4 mg/dL (8.5-10.1)
[2021-05-04 06:34] LABS: Bilirubin, Total 0.6 mg/dL (0.2-1.0); Total Protein 5.7 g/dL (6.4-8.2)
[2021-05-04] MEDS: PIPERACILLIN-TAZOB 3.375GM 100 ML IV SCH ×3 (07:10→23:13)
[2021-05-04] MEDS: ACCU-CHEK COMFORT CURVE STRIP VI SCH ×4 (07:12→23:14)
[2021-05-04] MEDS: VANCOMYCIN 750mg/250ml 250 ML IV SCH ×3 (07:12→14:19)
[2021-05-04 08:00] VITALS: BP 103/62
[2021-05-04] MEDS: InsuLIN REG 1unit/0.01ml Soln (100units/ml) SC SCH ×4 (08:36→23:34)
[2021-05-04] MEDS: APIXABAN 5 MG TAB PO SCH ×2 (10:17→10:27)
[2021-05-04] MEDS: ASCORBIC ACID 500 MG TAB PO SCH ×2 (10:17→23:13)
[2021-05-04] MEDS: FAMOTIDINE 20 MG TAB PO SCH (10:27)
[2021-05-04] MEDS: MULTIPLE VITAMIN TAB PO SCH (10:27)
[2021-05-04 10:29] VITALS: BP 121/46
[2021-05-04 12:30] VITALS: BP 111/39
[2021-05-04] MEDS: METOPROLOL SUCCINATE XL 50 MG TAB PO SCH (12:31)
[2021-05-04 17:04] VITALS: BP 114/48
[2021-05-04 22:04] VITALS: BP 106/40
[2021-05-04] MEDS: ATORVASTATIN 20 MG TAB PO SCH (23:13)
[2021-05-04] MEDS: INSULIN LANTUS (GLARGINE) 1 /0.01ml (100units/ml) SC SCH (23:35)
[2021-05-05] VITALS (8 sets, daily range): BP systolic 98–140; BP diastolic 36–63
[2021-05-05] MEDS: VANCOMYCIN 750mg/250ml 250 ML IV SCH ×2 (00:20→10:00)
[2021-05-05 05:40] LABS: Basophils # (auto) 0.1 10 ^3/uL (0-0.2); Basophils % (auto) 0.8 % (0.0-2.0); Eosinophils # (auto) 0.1 10 ^3/uL (0-0.8); Eosinophils % (auto) 1.3 % (0.0-7.0); Hematocrit 30.1 % (36.0-46.0); Hemoglobin 10.2 g/dL (12.2-16.2); Lymphocytes # (auto) 1.1 10 ^3/uL (0.4-5.4); Lymphocytes % (auto) 16.7 % (10.0-50.0); Mean Corpuscular Hemoglobin 28.3 pg (28.0-32.0); Mean Corpuscular Hgb Conc. 33.8 g/dL (32.0-36.0); Mean Corpuscular Volume 83.7 fL (80.0-100.0); Monocytes # (auto) 0.8 10 ^3/uL (0-1.3); Monocytes % (auto) 11.3 % (0.0-12.0); Neutrophils # (auto) 4.7 10 ^3/uL (1.6-8.6); Neutrophils % (auto) 69.9 % (37.0-80.0); Nucleated Red Blood Cells % 0.1 %; Red Blood Cells 3.59 10^6/uL (4.0-5.20); Red Cell Distribution Width 17.3 % (11.8-14.3); White Blood Cell 6.7 10^3/uL (4.4-10.8)
[2021-05-05 05:56] LABS: Potassium 3.4 mmol/L (3.5-5.1)
[2021-05-05 06:01] LABS: BUN/Creatinine Ratio 8.9; Calcium 8.4 mg/dL (8.5-10.1)
[2021-05-05] MEDS: PIPERACILLIN-TAZOB 3.375GM 100 ML IV SCH ×3 (06:23→23:27)
[2021-05-05] MEDS: ACCU-CHEK COMFORT CURVE STRIP VI SCH ×4 (07:30→23:26)
[2021-05-05] MEDS: InsuLIN REG 1unit/0.01ml Soln (100units/ml) SC SCH ×4 (08:10→23:25)
[2021-05-05 08:57] LABS: INR 1.1 (0.9-1.15); Partial Thromboplastin Time 27.7 sec (23.6-33.0)
[2021-05-05] MEDS: ASCORBIC ACID 500 MG TAB PO SCH ×2 (10:00→23:26)
[2021-05-05] MEDS: MULTIPLE VITAMIN TAB PO SCH (10:00)
[2021-05-05] MEDS: METOPROLOL SUCCINATE XL 50 MG TAB PO SCH (10:00)
[2021-05-05] MEDS: FAMOTIDINE 20 MG TAB PO SCH (10:00)
[2021-05-05] MEDS: APIXABAN 5 MG TAB PO SCH ×2 (10:00→23:27)
[2021-05-05] MEDS ORDERED: LIDOCAINE 1% HCL (LOCAL ANESTH.) INJ 20ML MDV ONE (10:07)
[2021-05-05] MEDS ORDERED: BUPIVACAINE W/ EPINEPH 0.25% INJ 50ML MDV ONE (10:07)
[2021-05-05] MEDS ORDERED: ceFAZolin 1GM VL ONE (10:17)
[2021-05-05] MEDS ORDERED: GLYCOPYRROLATE 0.2 MG/ML 1ML VIAL ONE (10:22)
[2021-05-05] MEDS ORDERED: ONDANSETRON HCL 4 MG/2 ML VIAL ONE (10:22)
[2021-05-05] MEDS ORDERED: MIDAZOLAM HCL 2MG/2ML 2ml VIAL (1mg/ml) ONE (10:22)
[2021-05-05] MEDS ORDERED: PROPOFOL 10 MG/ML 20 ML IV ONE (10:22)
[2021-05-05] MEDS ORDERED: ePHEDrine SULFATE 50 MG/ML AMP ONE (10:22)
[2021-05-05] MEDS ORDERED: LIDOCAINE 2% (LOCAL ANESTH.) PF 5ml SDV ONE (10:22)
[2021-05-05] MEDS ORDERED: HYDROmorphone HCL 2 MG/ML VL ONE (11:26)
[2021-05-05] MEDS ORDERED: HYDROmorphone HCL 2 MG/ML VL IV PRN (12:00)
[2021-05-05] MEDS ORDERED: ACCU-CHEK COMFORT CURVE STRIP VI ONE (12:00)
[2021-05-05] MEDS ORDERED: ePHEDrine SULFATE 50 MG/ML AMP IM ONE (12:00)
[2021-05-05] MEDS ORDERED: FAMOTIDINE (10MG/ML) 2ML VL IV ONE ×2 (12:00→12:10)
[2021-05-05] MEDS ORDERED: ONDANSETRON HCL 4 MG/2 ML VIAL IV PRN (12:00)
[2021-05-05] MEDS: VANCOMYCIN 1GM/250ML 250 ML IV SCH (17:00)
[2021-05-05] MEDS: INSULIN LANTUS (GLARGINE) 1 /0.01ml (100units/ml) SC SCH (23:26)
[2021-05-05] MEDS: ATORVASTATIN 20 MG TAB PO SCH (23:27)
[2021-05-06 05:00] VITALS: BP 101/49
[2021-05-06] MEDS: VANCOMYCIN 1GM/250ML 250 ML IV SCH ×2 (05:00→17:00)
[2021-05-06] MEDS: PIPERACILLIN-TAZOB 3.375GM 100 ML IV SCH ×3 (06:00→21:25)
[2021-05-06 06:17] LABS: Basophils # (auto) 0 10 ^3/uL (0-0.2); Basophils % (auto) 0.7 % (0.0-2.0); Eosinophils # (auto) 0.1 10 ^3/uL (0-0.8); Eosinophils % (auto) 1.7 % (0.0-7.0); Hematocrit 28.3 % (36.0-46.0); Hemoglobin 9.7 g/dL (12.2-16.2); Lymphocytes % (auto) 15.1 % (10.0-50.0); Mean Corpuscular Hemoglobin 29.1 pg (28.0-32.0); Mean Corpuscular Hgb Conc. 34.2 g/dL (32.0-36.0); Monocytes # (auto) 0.8 10 ^3/uL (0-1.3); Monocytes % (auto) 11.6 % (0.0-12.0); Neutrophils # (auto) 4.8 10 ^3/uL (1.6-8.6); Neutrophils % (auto) 70.9 % (37.0-80.0); Nucleated Red Blood Cells % 0.1 %; Red Blood Cells 3.33 10^6/uL (4.0-5.20); Red Cell Distribution Width 17.1 % (11.8-14.3); White Blood Cell 6.8 10^3/uL (4.4-10.8)
[2021-05-06 06:30] LABS: Calcium 8.7 mg/dL (8.5-10.1); Potassium 3.4 mmol/L (3.5-5.1)
[2021-05-06 06:33] LABS: BUN/Creatinine Ratio 7.6
[2021-05-06] MEDS: ACCU-CHEK COMFORT CURVE STRIP VI SCH ×4 (07:19→21:25)
[2021-05-06] MEDS: InsuLIN REG 1unit/0.01ml Soln (100units/ml) SC SCH ×4 (07:24→21:14)
[2021-05-06 09:00] VITALS: BP 136/78
[2021-05-06] MEDS: APIXABAN 5 MG TAB PO SCH ×2 (10:28→21:14)
[2021-05-06] MEDS: METOPROLOL SUCCINATE XL 50 MG TAB PO SCH (10:29)
[2021-05-06] MEDS: FAMOTIDINE 20 MG TAB PO SCH (10:29)
[2021-05-06] MEDS: MULTIPLE VITAMIN TAB PO SCH (10:29)
[2021-05-06] MEDS: ASCORBIC ACID 500 MG TAB PO SCH ×2 (10:29→21:14)
[2021-05-06 13:00] VITALS: BP 118/56
[2021-05-06 17:00] VITALS: BP 105/66
[2021-05-06] MEDS: INSULIN LANTUS (GLARGINE) 1 /0.01ml (100units/ml) SC SCH (21:13)
[2021-05-06] MEDS: ATORVASTATIN 20 MG TAB PO SCH (21:14)
[2021-05-06 22:00] VITALS: BP 103/35
[2021-05-07 04:58] LABS: Basophils # (auto) 0.1 10 ^3/uL (0-0.2); Eosinophils # (auto) 0.1 10 ^3/uL (0-0.8); Hemoglobin 9.6 g/dL (12.2-16.2); Lymphocytes # (auto) 1.6 10 ^3/uL (0.4-5.4)
[2021-05-07 05:00] VITALS: BP 136/53
[2021-05-07 05:00] LABS: Basophils % (auto) 0.9 % (0.0-2.0); Eosinophils % (auto) 2.1 % (0.0-7.0); Hematocrit 29.1 % (36.0-46.0); Mean Corpuscular Hgb Conc. 33.1 g/dL (32.0-36.0); Mean Corpuscular Volume 84.5 fL (80.0-100.0); Monocytes # (auto) 0.8 10 ^3/uL (0-1.3); Monocytes % (auto) 12.9 % (0.0-12.0); Neutrophils # (auto) 3.5 10 ^3/uL (1.6-8.6); Neutrophils % (auto) 57.1 % (37.0-80.0); Red Blood Cells 3.45 10^6/uL (4.0-5.20); Red Cell Distribution Width 17.2 % (11.8-14.3); White Blood Cell 6.1 10^3/uL (4.4-10.8)
[2021-05-07 05:15] LABS: BUN/Creatinine Ratio 9.4; Calcium 8.1 mg/dL (8.5-10.1); Potassium 3.5 mmol/L (3.5-5.1)
[2021-05-07] MEDS: PIPERACILLIN-TAZOB 3.375GM 100 ML IV SCH ×3 (05:18→21:15)
[2021-05-07] MEDS: VANCOMYCIN 1GM/250ML 250 ML IV SCH ×2 (05:41→17:00)
[2021-05-07] MEDS: ACCU-CHEK COMFORT CURVE STRIP VI SCH ×4 (06:07→22:17)
[2021-05-07] MEDS: InsuLIN REG 1unit/0.01ml Soln (100units/ml) SC SCH ×3 (06:09→22:18)
[2021-05-07 08:00] VITALS: BP 120/71
[2021-05-07] MEDS: APIXABAN 5 MG TAB PO SCH ×2 (10:00→21:15)
[2021-05-07] MEDS: MULTIPLE VITAMIN TAB PO SCH (10:00)
[2021-05-07] MEDS: FAMOTIDINE 20 MG TAB PO SCH (10:00)
[2021-05-07] MEDS: METOPROLOL SUCCINATE XL 50 MG TAB PO SCH (10:00)
[2021-05-07] MEDS: ASCORBIC ACID 500 MG TAB PO SCH ×2 (10:00→21:15)
[2021-05-07 12:00] VITALS: BP 114/54
[2021-05-07 16:00] VITALS: BP 103/53
[2021-05-07] MEDS: ATORVASTATIN 20 MG TAB PO SCH (21:15)
[2021-05-07 22:00] VITALS: BP 102/41
[2021-05-07] MEDS: INSULIN LANTUS (GLARGINE) 1 /0.01ml (100units/ml) SC SCH (22:18)
[2021-05-08] MEDS: VANCOMYCIN 1GM/250ML 250 ML IV SCH (02:24)
[2021-05-08 05:00] VITALS: BP 111/47
[2021-05-08] MEDS: PIPERACILLIN-TAZOB 3.375GM 100 ML IV SCH (05:00)
[2021-05-08 05:30] LABS: Basophils # (auto) 0.1 10 ^3/uL (0-0.2); Monocytes # (auto) 0.8 10 ^3/uL (0-1.3); Nucleated Red Blood Cells % 0.1 %; White Blood Cell 5.7 10^3/uL (4.4-10.8)
[2021-05-08 05:36] LABS: Basophils % (auto) 1.3 % (0.0-2.0); Eosinophils # (auto) 0.2 10 ^3/uL (0-0.8); Eosinophils % (auto) 2.8 % (0.0-7.0); Hematocrit 26.8 % (36.0-46.0); Hemoglobin 9.2 g/dL (12.2-16.2); Lymphocytes # (auto) 1.9 10 ^3/uL (0.4-5.4); Lymphocytes % (auto) 33.5 % (10.0-50.0); Mean Corpuscular Hemoglobin 28.7 pg (28.0-32.0); Mean Corpuscular Hgb Conc. 34.2 g/dL (32.0-36.0); Mean Corpuscular Volume 83.9 fL (80.0-100.0); Monocytes % (auto) 14.7 % (0.0-12.0); Neutrophils # (auto) 2.7 10 ^3/uL (1.6-8.6); Neutrophils % (auto) 47.7 % (37.0-80.0); Red Blood Cells 3.19 10^6/uL (4.0-5.20); Red Cell Distribution Width 16.9 % (11.8-14.3)
[2021-05-08 05:50] LABS: Calcium 8.1 mg/dL (8.5-10.1); Potassium 3.2 mmol/L (3.5-5.1)
[2021-05-08] MEDS: ACCU-CHEK COMFORT CURVE STRIP VI SCH ×4 (06:07→21:42)
[2021-05-08] MEDS: InsuLIN REG 1unit/0.01ml Soln (100units/ml) SC SCH ×4 (06:07→22:06)
[2021-05-08 08:00] VITALS: BP 132/59
[2021-05-08] MEDS: APIXABAN 5 MG TAB PO SCH ×2 (09:36→21:41)
[2021-05-08] MEDS: ASCORBIC ACID 500 MG TAB PO SCH ×2 (09:36→21:42)
[2021-05-08] MEDS: FAMOTIDINE 20 MG TAB PO SCH (09:36)
[2021-05-08] MEDS: MULTIPLE VITAMIN TAB PO SCH (09:36)
[2021-05-08] MEDS: METOPROLOL SUCCINATE XL 50 MG TAB PO SCH ×2 (09:36→09:42)
[2021-05-08] MEDS: POTASSIUM CHL 10MEQ/50ML 50 ML IV SCH ×4 (11:03→16:18)
[2021-05-08 12:00] VITALS: BP 143/63
[2021-05-08] MEDS ORDERED: LINE1TAB6 PO (13:12)
[2021-05-08 16:00] VITALS: BP 112/40
[2021-05-08 20:00] VITALS: BP 142/70
[2021-05-08] MEDS: ATORVASTATIN 20 MG TAB PO SCH (21:41)
[2021-05-08] MEDS: LINEZOLID 600MG/300ML 300 ML IV SCH (21:41)
[2021-05-08] MEDS: INSULIN LANTUS (GLARGINE) 1 /0.01ml (100units/ml) SC SCH (22:07)
[2021-05-08 22:26] VITALS: BP 142/70
[2021-05-09 04:41] VITALS: BP 140/79
[2021-05-09] MEDS: InsuLIN REG 1unit/0.01ml Soln (100units/ml) SC SCH ×3 (06:18→17:00)
[2021-05-09] MEDS: ACCU-CHEK COMFORT CURVE STRIP VI SCH ×3 (06:19→17:00)
[2021-05-09 08:00] VITALS: BP 129/44
[2021-05-09] MEDS: FAMOTIDINE 20 MG TAB PO SCH (09:24)
[2021-05-09] MEDS: MULTIPLE VITAMIN TAB PO SCH (09:25)
[2021-05-09] MEDS: ASCORBIC ACID 500 MG TAB PO SCH (09:25)
[2021-05-09] MEDS: LINEZOLID 600MG/300ML 300 ML IV SCH (09:25)
[2021-05-09] MEDS: APIXABAN 5 MG TAB PO SCH (09:25)
[2021-05-09] MEDS: METOPROLOL SUCCINATE XL 50 MG TAB PO SCH (09:26)
[2021-05-09 11:51] VITALS: BP 140/66
[2021-05-09] MEDS ORDERED: INFLUENZA QUAD 2021-2022 0.5 ML SYRG IM ONE (13:15)
[2021-05-09 16:00] VITALS: BP 116/82
[2021-05-09] MEDS ORDERED: KETAMINE 50mg/ML 10ml Vial (500mg/10ml) IV ONE (17:14)
== END 2021-05-09 17:15 | DRG 580 ==
LOC: EDBD 22:04 → ER 22:04 → WEST WING 05-03 00:17 → TELE-WESTW 05-03 04:30 → WEST WING 05-09 09:30
PROVIDERS: ADMIT Internal Medicine; ATTEND Internal Medicine
PROC: 0KBN0ZZ Excision of Right Hip Muscle, Open Approach (ICD-10-PCS; principal; 2021-05-05 10:41)
PROC: 3E02340 Introduction of Influenza Vaccine into Muscle, Percutaneous Approach (ICD-10-PCS; 2021-05-09)
DX: L89.153 Pressure ulcer of sacral region, stage 3 (principal); E11.52 Type 2 diabetes mellitus with diabetic peripheral angiopathy with gangrene; E87.6 Hypokalemia; E11.65 Type 2 diabetes mellitus with hyperglycemia; E66.9 Obesity, unspecified; E78.5 Hyperlipidemia, unspecified; I11.0 Hypertensive heart disease with heart failure; Z20.822 Contact with and (suspected) exposure to COVID-19; B95.2 Enterococcus as the cause of diseases classified elsewhere; I50.9 Heart failure, unspecified; I48.0 Paroxysmal atrial fibrillation; S31.000A Unspecified open wound of lower back and pelvis without penetration into retroperitoneum, initial encounter; X58.XXXA Exposure to other specified factors, initial encounter; Y93.89 Activity, other specified; Y92.89 Other specified places as the place of occurrence of the external cause; Z82.5 Family history of asthma and other chronic lower respiratory diseases; Z83.3 Family history of diabetes mellitus; Z79.01 Long term (current) use of anticoagulants; Y99.8 Other external cause status; Z23 Encounter for immunization
CPT/HCPCS: 36415; 72220; 80048; 80053; 80202; 82565; 82962; 83036; 83605; 84132; 85025; 85610; 85652; 85730; 86141; 87040; 87070; 87075; 87076; 87077; 87081; 87186; 87205; 87426; 90686; 93005; 96365; A4565; G0378; J0690; J1815; J2001; J2250; J2405; J2543; J2704; J3490

== ENCOUNTER → 2021-09-24 | Outpatient (CLI) | payer MEDICARE, OTHER ==
[~2021-09-24] MED LIST changes: +LINE1TAB6 PO
[2021-09-24 09:32] LABS: Urine Blood Negative /uL (Negative); Urine Specific Gravity 1.029 (1.001-1.035)
[2021-09-24 09:33] LABS: Calcium 9.1 mg/dL (8.5-10.1); Potassium 3.8 mmol/L (3.5-5.1)
[2021-09-24 09:34] LABS: Basophils # (auto) 0.1 10 ^3/uL (0-0.2); Hemoglobin 13.1 g/dL (12.2-16.2); Neutrophils # (auto) 5.1 10 ^3/uL (1.6-8.6); Red Blood Cells 5.29 10^6/uL (4.0-5.20); Red Cell Distribution Width 17.5 % (11.8-14.3)
[2021-09-24 09:35] LABS: Eosinophils # (auto) 0.2 10 ^3/uL (0-0.8); Eosinophils % (auto) 1.9 % (0.0-7.0); Hematocrit 41.1 % (36.0-46.0); Lymphocytes # (auto) 1.9 10 ^3/uL (0.4-5.4); Lymphocytes % (auto) 23.7 % (10.0-50.0); Mean Corpuscular Hemoglobin 24.8 pg (28.0-32.0); Mean Corpuscular Hgb Conc. 31.9 g/dL (32.0-36.0); Mean Corpuscular Volume 77.7 fL (80.0-100.0); Monocytes # (auto) 0.6 10 ^3/uL (0-1.3); Monocytes % (auto) 8.3 % (0.0-12.0); Neutrophils % (auto) 65.1 % (37.0-80.0); White Blood Cell 7.9 10^3/uL (4.4-10.8)
[2021-09-24 09:39] LABS: BUN/Creatinine Ratio 23.2; Bilirubin, Total 0.3 mg/dL (0.2-1.0); Total Protein 7.2 g/dL (6.4-8.2)
[2021-09-24 09:41] LABS: Free T4 (Free Thyroxine) 1.42 ng/dL (0.89-1.76)
== END | disposition home or self-care (01) ==
LOC: Rad HDHVI 08:06
PROVIDERS: ATTEND Internal Medicine Cardiovascular Disease
DX: D51.3 Other dietary vitamin B12 deficiency anemia (principal); D64.9 Anemia, unspecified; E11.9 Type 2 diabetes mellitus without complications; E55.9 Vitamin D deficiency, unspecified; I10 Essential (primary) hypertension; R00.2 Palpitations; R53.1 Weakness; R30.0 Dysuria
CPT/HCPCS: 36415; 80053; 80061; 81003; 82306; 82607; 83036; 84439; 84443; 85025

== ENCOUNTER → 2021-09-29 | Outpatient (CLI) | payer MEDICARE, OTHER ==
[~2021-09-29] VITALS: Ht 157.5 cm; Wt 85.7 kg
[~2021-09-29] MED LIST changes: +ADENOSINE 72 MG in GIVE UN-DILUTED 0 ML IV ONE; +ADENOSINE 90 MG/30 ML INJ IV ONE
== END | disposition home or self-care (01) ==
LOC: Rad HDHVI 12:48
PROVIDERS: ATTEND Internal Medicine Cardiovascular Disease
DX: E78.5 Hyperlipidemia, unspecified (principal); I48.91 Unspecified atrial fibrillation; E11.9 Type 2 diabetes mellitus without complications; I10 Essential (primary) hypertension; E11.65 Type 2 diabetes mellitus with hyperglycemia; Z82.49 Family history of ischemic heart disease and other diseases of the circulatory system
CPT/HCPCS: 78452; 93005; 96374; 96375; A9500; J0153

== ENCOUNTER → 2021-09-30 | Outpatient (CLI) | payer MEDICARE, OTHER ==
[~2021-09-30] MED LIST changes: -ADENOSINE 72 MG in GIVE UN-DILUTED 0 ML IV ONE; -ADENOSINE 90 MG/30 ML INJ IV ONE
== END | disposition home or self-care (01) ==
LOC: Rad HDHVI 13:50
PROVIDERS: ATTEND Internal Medicine Cardiovascular Disease
DX: I35.8 Other nonrheumatic aortic valve disorders (principal); I10 Essential (primary) hypertension
CPT/HCPCS: 93306

== ENCOUNTER → 2021-11-12 | Outpatient (CLI) | payer MEDICARE, OTHER ==
[~2021-11-12] MED LIST changes: +ATO40T PO; +DAPA1TAB4 PO; +INSRTEST SC; +INSU1INJ19 SC; +METO25TA93 PO; +MULT-1018 PO
[2021-11-12 10:27] VITALS: BP 145/63
[2021-11-12 10:40] VITALS: BP 145/66
[2021-11-12 11:36] LABS: Basophils # (auto) 0.1 10 ^3/uL (0-0.2); Eosinophils # (auto) 0.2 10 ^3/uL (0-0.8); Hemoglobin 13.4 g/dL (12.2-16.2); Neutrophils # (auto) 4.6 10 ^3/uL (1.6-8.6); Nucleated Red Blood Cells % 0.1 %
[2021-11-12 11:39] LABS: Basophils % (auto) 0.7 % (0.0-2.0); Eosinophils % (auto) 2.3 % (0.0-7.0); Hematocrit 41.8 % (36.0-46.0); Lymphocytes % (auto) 26.7 % (10.0-50.0); Mean Corpuscular Hemoglobin 25.9 pg (28.0-32.0); Mean Corpuscular Hgb Conc. 31.9 g/dL (32.0-36.0); Mean Corpuscular Volume 81.2 fL (80.0-100.0); Monocytes # (auto) 0.6 10 ^3/uL (0-1.3); Monocytes % (auto) 8.5 % (0.0-12.0); Neutrophils % (auto) 61.8 % (37.0-80.0); Red Blood Cells 5.15 10^6/uL (4.0-5.20); Red Cell Distribution Width 17.9 % (11.8-14.3); White Blood Cell 7.5 10^3/uL (4.4-10.8)
[2021-11-12 11:42] LABS: INR 0.95 (0.9-1.15); Partial Thromboplastin Time 26.4 sec (24.6-33.4)
[2021-11-12 12:00] LABS: Potassium 4.5 mmol/L (3.5-5.1)
[2021-11-12 12:06] LABS: BUN/Creatinine Ratio 23.6; Calcium 8.6 mg/dL (8.5-10.1)
== END | disposition home or self-care (01) ==
LOC: Rad HDHVI 10:11
PROVIDERS: ATTEND Internal Medicine Cardiovascular Disease
DX: M47.814 Spondylosis without myelopathy or radiculopathy, thoracic region (principal); I50.23 Acute on chronic systolic (congestive) heart failure; I48.0 Paroxysmal atrial fibrillation; R79.1 Abnormal coagulation profile; I70.0 Atherosclerosis of aorta; Z01.818 Encounter for other preprocedural examination
CPT/HCPCS: 36415; 71046; 80048; 85025; 85610; 85730; 93005; G0463

== ENCOUNTER 2021-11-13 09:50 | Day surgery (SDC) | payer MEDICARE, OTHER ==
[~2021-11-13] VITALS: Ht 157.5 cm; Wt 83.9 kg
[~2021-11-13 09:50] MED LIST changes: -ATO40T PO; -CLIN300C8 PO; -COLC1TAB3 PO; -INSLANTI SC; -INSRTEST SC; -LINE1TAB6 PO; -METO25TA93 PO
[2021-11-13] MEDS ORDERED: VANCOMYCIN HCL 1000 MG VL ONE (14:12)
[2021-11-13] MEDS ORDERED: MIDAZOLAM HCL 2MG/2ML 2ml VIAL (1mg/ml) ONE (14:13)
[2021-11-13] MEDS ORDERED: fentaNYL CITRATE 100 MCG/2 ML VL ONE (14:13)
[2021-11-13] MEDS ORDERED: VANCOMYCIN 1GM/250ML 250 ML IV ONE (14:15)
[2021-11-13] MEDS ORDERED: LIDOCAINE 2%HCL (LOCAL ANESTH.) INJ 20ML MDV ONE (14:19)
[2021-11-13] MEDS ORDERED: ONDANSETRON HCL 4 MG/2 ML VIAL ONE (15:25)
[2021-11-13] MEDS ORDERED: APIX5TAB PO (15:51)
[2021-11-13] MEDS ORDERED: ATO40T PO (15:58)
[2021-11-13] MEDS ORDERED: INSRTEST SC (15:58)
[2021-11-13] MEDS ORDERED: METO25TA93 PO (15:58)
[2021-11-13] MEDS ORDERED: MULT-1018 PO (16:13)
== END 2021-11-13 17:10 | disposition home or self-care (01) ==
LOC: CATH 09:50
PROVIDERS: ATTEND Internal Medicine Cardiovascular Disease
DX: I49.5 Sick sinus syndrome (principal); I10 Essential (primary) hypertension; E78.5 Hyperlipidemia, unspecified; E66.9 Obesity, unspecified; E11.40 Type 2 diabetes mellitus with diabetic neuropathy, unspecified; E11.21 Type 2 diabetes mellitus with diabetic nephropathy; Z20.822 Contact with and (suspected) exposure to COVID-19; Z79.899 Other long term (current) drug therapy; Z79.84 Long term (current) use of oral hypoglycemic drugs
CPT/HCPCS: 33208; 36415; 71046; 80048; 85025; 85610; 85730; 93005; C1785; C1892; C1898; G0463; J2250; J2405; J3010; J3370; U0003; 99152; 99153

== ENCOUNTER → 2021-11-14 | Outpatient (CLI) | payer MEDICARE, OTHER ==
[~2021-11-14] MED LIST changes: +ATO40T PO; -ATOR20TA50 PO; -INSREGI SC; +INSRTEST SC; -METO-6 PO; +METO25TA93 PO
== END | disposition home or self-care (01) ==
LOC: Rad HDHVI 11:02
PROVIDERS: ATTEND Internal Medicine Cardiovascular Disease
DX: I70.0 Atherosclerosis of aorta (principal); M47.814 Spondylosis without myelopathy or radiculopathy, thoracic region; Z95.0 Presence of cardiac pacemaker
CPT/HCPCS: 71046

== ENCOUNTER 2022-01-04 12:51 | Inpatient (IN) | payer MEDICARE, OTHER ==
[~2022-01-04] VITALS: Ht 157.5 cm; Wt 95.0 kg
[2022-01-04] MEDS ORDERED: SODIUM CHLORIDE 0.9% 1,000 ML IV ONE (13:00)
[2022-01-04] MEDS ORDERED: D5W/SOD CHL 0.45% 1,000 ML IV ONE (14:00)
[2022-01-04 14:21] LABS: Basophils # (auto) 0.1 10 ^3/uL (0-0.2); Basophils % (auto) 0.8 % (0.0-2.0); Eosinophils # (auto) 0.2 10 ^3/uL (0-0.8); Eosinophils % (auto) 1.4 % (0.0-7.0); Hematocrit 45.8 % (36.0-46.0); Hemoglobin 15.4 g/dL (12.2-16.2); Lymphocytes # (auto) 2.3 10 ^3/uL (0.4-5.4); Lymphocytes % (auto) 20.7 % (10.0-50.0); Mean Corpuscular Hemoglobin 27.8 pg (28.0-32.0); Mean Corpuscular Hgb Conc. 33.6 g/dL (32.0-36.0); Mean Corpuscular Volume 82.9 fL (80.0-100.0); Monocytes # (auto) 1.2 10 ^3/uL (0-1.3); Monocytes % (auto) 11.1 % (0.0-12.0); Neutrophils # (auto) 7.3 10 ^3/uL (1.6-8.6); Red Blood Cells 5.53 10^6/uL (4.0-5.20)
[2022-01-04] MEDS ORDERED: DEXTROSE 50% SYRINGE 50 ML IV ONE (14:33)
[2022-01-04 14:37] LABS: Albumin 3.5 g/dL (3.4-5.0); Calcium 9.4 mg/dL (8.5-10.1); Potassium 4.1 mmol/L (3.5-5.1)
[2022-01-04 14:39] LABS: BUN/Creatinine Ratio 26.2; Bilirubin, Total 0.3 mg/dL (0.2-1.0); Total Protein 7.3 g/dL (6.4-8.2)
[2022-01-04 17:45] LABS: Urine Bacteria NONE SEEN /hpf (None Seen); Urine Blood Negative /uL (Negative); Urine WBC <1 /hpf (0 - 5)
[2022-01-04] MEDS ORDERED: HYDROcodone-ACET 5/325MG TAB PO PRN (19:15)
[2022-01-04] MEDS ORDERED: DEXTROSE (50%) 50ML SYRG IV PRN (19:15)
[2022-01-04] MEDS ORDERED: DOCUSATE SOD 100 MG CAP PO PRN (19:15)
[2022-01-04] MEDS ORDERED: ONDANSETRON HCL 4 MG/2 ML VIAL IV PRN (19:15)
[2022-01-04] MEDS ORDERED: ACETAMINOPHEN 325 MG TAB PO PRN (19:15)
[2022-01-04] MEDS: ACCU-CHEK COMFORT CURVE STRIP VI SCH (22:23)
[2022-01-04] MEDS: InsuLIN REG 1unit/0.01ml Soln (100units/ml) SC SCH (22:24)
[2022-01-04] MEDS: SODIUM CHLOR 0.9% PF (SALINE LOCK) 10ML VIAL/SYR IV SCH (22:25)
[2022-01-04] MEDS: ATORVASTATIN 20 MG TAB PO SCH (22:28)
[2022-01-04] MEDS: APIXABAN 5 MG TAB PO SCH (22:28)
[2022-01-04] MEDS: INSULIN LANTUS (GLARGINE) 1 /0.01ml (100units/ml) SC SCH (22:29)
[2022-01-05] VITALS (8 sets, daily range): BP systolic 113–145; BP diastolic 42–59
[2022-01-05] MEDS: SODIUM CHLOR 0.9% PF (SALINE LOCK) 10ML VIAL/SYR IV SCH ×3 (05:22→21:39)
[2022-01-05] MEDS: ACCU-CHEK COMFORT CURVE STRIP VI SCH ×4 (06:28→21:39)
[2022-01-05] MEDS: InsuLIN REG 1unit/0.01ml Soln (100units/ml) SC SCH ×4 (06:28→22:00)
[2022-01-05] MEDS: INSULIN LANTUS (GLARGINE) 1 /0.01ml (100units/ml) SC SCH ×2 (06:29→22:00)
[2022-01-05] MEDS ORDERED: TRIATAB3 PO (06:55)
[2022-01-05] MEDS ORDERED: OLME20TA53 PO (06:55)
[2022-01-05] MEDS: MULTIPLE VITAMIN TAB PO SCH (09:07)
[2022-01-05] MEDS: APIXABAN 5 MG TAB PO SCH ×2 (09:07→21:31)
[2022-01-05] MEDS: FAMOTIDINE 20 MG TAB PO SCH (09:08)
[2022-01-05] MEDS: METOPROLOL SUCCINATE XL 50 MG TAB PO SCH (09:08)
[2022-01-05] MEDS: SODIUM CHLORIDE 0.9% 1,000 ML IV SCH (14:35)
[2022-01-05] MEDS: ATORVASTATIN 20 MG TAB PO SCH (21:31)
[2022-01-06 05:00] VITALS: BP 134/50
[2022-01-06] MEDS: SODIUM CHLORIDE 0.9% 1,000 ML IV SCH (05:40)
[2022-01-06] MEDS: SODIUM CHLOR 0.9% PF (SALINE LOCK) 10ML VIAL/SYR IV SCH (06:00)
[2022-01-06 06:44] LABS: Basophils # (auto) 0.1 10 ^3/uL (0-0.2); Basophils % (auto) 0.9 % (0.0-2.0); Eosinophils # (auto) 0.3 10 ^3/uL (0-0.8); Hematocrit 39.5 % (36.0-46.0); Hemoglobin 13.3 g/dL (12.2-16.2); Lymphocytes % (auto) 35.8 % (10.0-50.0); Mean Corpuscular Hemoglobin 27.7 pg (28.0-32.0); Mean Corpuscular Hgb Conc. 33.7 g/dL (32.0-36.0); Mean Corpuscular Volume 82.1 fL (80.0-100.0); Monocytes % (auto) 11.4 % (0.0-12.0); Neutrophils % (auto) 47.9 % (37.0-80.0); Nucleated Red Blood Cells % 0.1 %; Red Blood Cells 4.81 10^6/uL (4.0-5.20); Red Cell Distribution Width 14.5 % (11.8-14.3); White Blood Cell 8.4 10^3/uL (4.4-10.8)
[2022-01-06] MEDS: INSULIN LANTUS (GLARGINE) 1 /0.01ml (100units/ml) SC SCH (06:47)
[2022-01-06 06:58] LABS: BUN/Creatinine Ratio 25.6; Calcium 8.3 mg/dL (8.5-10.1)
[2022-01-06] MEDS: ACCU-CHEK COMFORT CURVE STRIP VI SCH ×2 (07:00→11:28)
[2022-01-06] MEDS: InsuLIN REG 1unit/0.01ml Soln (100units/ml) SC SCH ×2 (07:00→12:21)
[2022-01-06 08:30] VITALS: BP 139/45
[2022-01-06 09:00] VITALS: BP 139/45
[2022-01-06] MEDS: FAMOTIDINE 20 MG TAB PO SCH (09:37)
[2022-01-06] MEDS: METOPROLOL SUCCINATE XL 50 MG TAB PO SCH (09:38)
[2022-01-06] MEDS: APIXABAN 5 MG TAB PO SCH (09:38)
[2022-01-06] MEDS: MULTIPLE VITAMIN TAB PO SCH (09:38)
[2022-01-06 13:00] VITALS: BP 124/64
[2022-01-06 15:45] VITALS: BP 124/64
== END 2022-01-06 16:25 | disposition home or self-care (01) | DRG 637 ==
LOC: ER 12:51 → EDBD 12:51 → OVERFLOW 19:05 → WEST WING 01-05 00:31
PROVIDERS: ADMIT Internal Medicine; ATTEND Internal Medicine
DX: E11.65 Type 2 diabetes mellitus with hyperglycemia (principal); N17.0 Acute kidney failure with tubular necrosis; D68.59 Other primary thrombophilia; E87.5 Hyperkalemia; Z20.822 Contact with and (suspected) exposure to COVID-19; E78.5 Hyperlipidemia, unspecified; E66.9 Obesity, unspecified; I48.91 Unspecified atrial fibrillation; I11.0 Hypertensive heart disease with heart failure; E86.0 Dehydration; L89.90 Pressure ulcer of unspecified site, unspecified stage; I50.9 Heart failure, unspecified; Z68.38 Body mass index [BMI] 38.0-38.9, adult; Z95.0 Presence of cardiac pacemaker; Z82.5 Family history of asthma and other chronic lower respiratory diseases; Z82.49 Family history of ischemic heart disease and other diseases of the circulatory system
CPT/HCPCS: 36415; 70450; 71045; 80048; 80053; 81001; 82962; 83880; 84484; 85025; 87081; 87426; 93005; 96360; 96361; G0378; J1815

== ENCOUNTER → 2023-08-04 | Outpatient (CLI) | payer MEDICARE, OTHER ==
[~2023-08-04] MED LIST changes: -ATO40T PO; +ATOR-507 PO; +OLME20TA53 PO; +TRIATAB3 PO
== END | disposition home or self-care (01) ==
LOC: Rad HDHVI 10:01
PROVIDERS: ATTEND Internal Medicine Cardiovascular Disease
DX: I35.8 Other nonrheumatic aortic valve disorders (principal); I70.0 Atherosclerosis of aorta; R06.02 Shortness of breath; E78.5 Hyperlipidemia, unspecified; I10 Essential (primary) hypertension; Z95.0 Presence of cardiac pacemaker
CPT/HCPCS: 93306; 93880